=== PATIENT | female | born 1945 | race Caucasian/White ===

== ENCOUNTER 2016-11-13 13:54 | Observation (INO) | payer OTHER ==
[~2016-11-13] VITALS: Ht 149.9 cm; Wt 66.4 kg
[~2016-11-13 13:54] MED LIST: ADVIN25/60 INH; ALBU1AER9 INH; CLB200 PO; DICL1GEL28 TOP; KETO0.024 OPB; RANI150C4 PO; SIMV-151 PO; XNX25 PO
--- NOTE | 2016-11-13 15:32 | EMERGENCY ROOM VISIT NOTE ---
History Report prepared by Yony: Nissa Jones Under the Supervision of: Dr. Jamar Barrow D.O. First contact with patient: 14:55 Chief Complaint: CARDIAC ASSESSMENT Stated Complaint: HIGH BP, SOB, LIGHTHEADED, NOT WALKING FAST Nursing Triage Summary: Triage note: pt reports since Thursday she has had high bp and shortness of breath. pt denies any pain at this time. "last night in bed i had some chest pressure and pain in my right shoulder." History of Present Illness The patient is a 71 year old female who presents to the Emergency Room with complaints of persistent shortness of breath and hypertension for the past 5 days. She is accompanied by her . The highest BP she has recorded at home was 170/80. She admits to a history of asthma and hypertension and takes daily Lisinopril. She underwent a cardiac ablation in 2013 for a history of SVT and states she did not have a cardiac catheterization before the ablation. The patient follows with Dr. Mukherjee of [facility] and is not on daily blood thinners. She denies any recent headaches or changes in vision. She does admit to resolved chest pain that occurred last night. She describes the pain as feeling like "pressure" and reports it was accompanied by right sided shoulder pain that radiated into her neck. She states she was sitting in bed when the pain occurred, but notes she is pain free here in the ED. She saw her doctor earlier this afternoon who told her she may have experienced a heart attack, and should come to the ED for further evaluation. The patient notes she has lost 10 pounds in the past several months through diet and exercise and admits she has been walking around her neighborhood recently. She has continued to walk over the past few days, despite the cold and windy weather. She admits to some recent diarrhea for the past 1 week, but states she has experienced chronic problems with diarrhea before. Source of History: patient Onset: last night Position: chest, other (global) Timing: other (persistent) Associated Symptoms: + chest pain, + diarrhea, No headache Review of Systems See HPI for pertinent positives & negatives. A total of 10 systems reviewed and were otherwise negative. Past Medical & Surgical Medical Problems: (1) Asthma (2) Bronchitis (3) Hypertension Social History Smoking Status: Never Smoker Smokeless Tobacco Use: No Alcohol Use: occasionally Drug Use: none Marital Status: Housing Status: lives with family Occupation Status: retired Current/Historical Medications Scheduled Celecoxib (Celebrex), 200 MG PO DAILY Cholecalciferol (Vitamin D3), 1 TAB PO DAILY Fluticasone Prop/Salmeterol (Advair Diskus 250/50 60 Dose), 1 PUFF INH BID Lisinopril (Lisinopril), 5 MG PO DAILY Loratadine (Claritin), 10 MG PO DAILY Simvastatin (Simvastatin), 10 MG PO HS [Lemon-Lavendar], 1 TAB PO DAILY Scheduled PRN Alprazolam (Alprazolam), 0.125 MG PO HS PRN for Anxiety/Insomnia Carboxymethylcellulose Sodium (Refresh Tears), 2-3 DROPS OPB DAILY PRN for PRN Allergies Coded Allergies: Moxifloxacin (Verified Allergy, Intermediate, ITCH,RED RASH, 11/13/16) Physical Exam Vital Signs Date Time Temp Pulse Resp B/P Pulse Ox O2 Delivery O2 Flow Rate FiO2 11/13/16 16:36 73 18 175/85 96 Room Air 11/13/16 15:50 69 16 96 Room Air 11/13/16 15:41 68 11/13/16 15:36 96 Room Air 11/13/16 15:36 99 Room Air 11/13/16 13:58 36.7 81 18 180/90 98 Room Air Physical Exam GENERAL: Patient is awake, alert, in no acute distress, patient is resting comfortably and showing no signs of anxiety EYES: The conjunctivae are clear. The pupils are round and reactive. EARS, NOSE, MOUTH AND THROAT: The nose is without any evidence of any deformity. Mucous membranes are moist tongue is midline NECK: The neck is nontender and supple. RESPIRATORY: Normal respiratory effort is noted there is no evidence of wheezing rhonchi or rales CARDIOVASCULAR: Regular rate and rhythm noted there no murmurs rubs or gallops normal S1 normal S2 GASTROINTESTINAL: The abdomen is soft. Bowel sounds are present in all quadrants. Abdomen is nontender MUSCULOSKELETAL/EXTREMITIES: There is no evidence of gross deformity full range of motion is noted in the hips and shoulders SKIN: There is no obvious evidence of any rash. There are no petechiae, pallor or cyanosis noted. NEUROLOGIC: Patient is awake alert and oriented x3 Medical Decision & Procedures ER Provider Diagnostic Interpretation: This X-Ray was reviewed and interpreted by myself and the radiologist. SINGLE VIEW CHEST IMPRESSION: No active disease in the chest. Electronically signed by: Alex Aragon M.D. 11/13/2016 3:45 PM Laboratory Results 11/13/16 15:35 Red Blood Count 4.53, Mean Corpuscular Volume 91.8, Mean Corpuscular Hemoglobin 31.1, Mean Corpuscular Hemoglobin Concent 33.9, Mean Platelet Volume 10.5, Neutrophils (%) (Auto) 57.5, Lymphocytes (%) (Auto) 30.5, Monocytes (%) (Auto) 8.6, Eosinophils (%) (Auto) 2.5, Basophils (%) (Auto) 0.9, Neutrophils # (Auto) 3.26, Lymphocytes # (Auto) 1.73, Monocytes # (Auto) 0.49, Eosinophils # (Auto) 0.14, Basophils # (Auto) 0.05 11/13/16 15:35 Test 11/13/16 15:15 11/13/16 15:35 Urine Color YELLOW Urine Appearance CLEAR (CLEAR) Urine pH 6.0 (4.5-7.5) Urine Specific [place] 1.005 (1.000-1.030) Urine Protein NEG (NEG) Urine Glucose (UA) NEG (NEG) Urine Ketones NEG (NEG) Urine Occult Blood NEG (NEG) Urine Nitrite NEG (NEG) Urine Bilirubin NEG (NEG) Urine Urobilinogen NEG (NEG) Urine Leukocyte Esterase TRACE (NEG) Urine WBC (Auto) 1-5 /hpf (0-5) Urine RBC (Auto) 0-4 /hpf (0-4) Urine Hyaline Casts (Auto) 0 /lpf (0-5) Urine Epithelial Cells (Auto) 0-5 /lpf (0-5) Urine Bacteria (Auto) NEG (NEG) White Blood Count 5.67 K/uL (4.8-10.8) Red Blood Count 4.53 M/uL (4.2-5.4) Hemoglobin 14.1 g/dL (12.0-16.0) Hematocrit 41.6 % (37-47) Mean Corpuscular Volume 91.8 fL (80-100) Mean Corpuscular Hemoglobin 31.1 pg (25-34) Mean Corpuscular Hemoglobin Concent 33.9 g/dl (32-36) Platelet Count 217 K/uL (130-400) Mean Platelet Volume 10.5 fL (7.4-10.4) Neutrophils (%) (Auto) 57.5 % Lymphocytes (%) (Auto) 30.5 % Monocytes (%) (Auto) 8.6 % Eosinophils (%) (Auto) 2.5 % Basophils (%) (Auto) 0.9 % Neutrophils # (Auto) 3.26 K/uL (1.4-6.5) Lymphocytes # (Auto) 1.73 K/uL (1.2-3.4) Monocytes # (Auto) 0.49 K/uL (0.11-0.59) Eosinophils # (Auto) 0.14 K/uL (0-0.5) Basophils # (Auto) 0.05 K/uL (0-0.2) RDW Standard Deviation 47.7 fL (36.4-46.3) RDW Coefficient of Variation 14.0 % (11.5-14.5) Immature Granulocyte % (Auto) 0.0 % Immature Granulocyte # (Auto) 0.00 K/uL (0.00-0.02) Prothrombin Time 10.6 SECONDS (9.0-12.0) Prothromb Time International Ratio 1.0 (0.9-1.1) Activated Partial Thromboplast Time 26.3 SECONDS (21.0-31.0) Partial Thromboplastin Ratio 1.0 Anion Gap 5.0 mmol/L (3-11) Est Creatinine Clear Calc Drug Dose 43.6 ml/min Estimated GFR () 68.0 Estimated GFR (Non- 58.7 BUN/Creatinine Ratio 18.7 (10-20) Calcium Level 8.7 mg/dl (8.5-10.1) Magnesium Level 2.4 mg/dl (1.8-2.4) Total Bilirubin 0.3 mg/dl (0.2-1) Aspartate Amino Transf (AST/SGOT) 19 U/L (15-37) Alanine Aminotransferase (ALT/SGPT) 30 U/L (12-78) Alkaline Phosphatase 76 U/L (45-117) Total Creatine Kinase 155 U/L (26-192) Creatine Kinase MB 1.8 ng/ml (0.5-3.6) Creatine Kinase MB Ratio 1.2 (0-3.0) Pro-B-Type Natriuretic Peptide 163 pg/ml (0-900) Total Protein 7.4 gm/dl (6.4-8.2) Albumin 3.8 gm/dl (3.4-5.0) Globulin 3.6 gm/dl (2.5-4.0) Albumin/Globulin Ratio 1.1 (0.9-2) Thyroid Stimulating Hormone (TSH) 1.120 uIu/ml (0.300-4.500) Free Thyroxine 1.03 ng/dl (0.80-1.60) Laboratory results per my review. Medications Administered Medications (Trade) Dose Ordered Sig/Jennifer Route Start Time Stop Time Status Last Admin Dose Admin Sodium Chloride (Nss 1000ml) 1,000 ml @ 100 mls/hr Q10H IV 11/13/16 18:17 12/13/16 18:16 11/13/16 21:11 100 MLS/HR ECG Indication: SOB/dyspnea Rate (beats per minute): 74 Rhythm: normal sinus (normal sinus rhythm) Findings: Q waves (Anterior), other (no acute ST segments) Change: no significant change (No change when compared to EKG from 12/07/2014) ED Course 1519: The patient was evaluated in room A9B. A complete history and physical examination were performed. 1715: I reevaluated the patient. I discussed my recommendation that she remain in the hospital for further evaluation and management and she agrees. I will page the hospital medicine team. 1736: I discussed the patients case with Dr. Singh, [facility] Hospitalist. The patient will be further evaluated. Medical Decision Prior records/ancillary studies reviewed. Triage Nursing notes reviewed. Additional history obtained from the family. The patient's history was concerning for respiratory difficulties. Differential diagnosis: Etiologies such as infections, reactive airway disease, pneumonia, pneumothorax , COPD, CHF, cardiac ischemia, pulmonary embolism, musculoskeletal, gastrointestinal, as well as others were entertained. The patient is a 71-year-old female who presented to the emergency apartment for an evaluation of chest discomfort and dyspnea on exertion. The patient was not tachycardic. She did not have any acute EKG changes compared to previous. I discussed the patient's laboratory and radiographic studies with her. I also discussed the limitations of the emergency department workup for chest pain with her. Given the patient's history and the fact that she was sent her by her primary care physician for cardiac workup I discussed her case with the on-call [facility] hospitalist group to further evaluate the patient for inpatient management and testing. Consults Time Called: 172 Consulting Physician: Dr. Singh [facility] Hospitalist Returned Call: [phone] I discussed the patients case with Dr. Singh [facility] Hospitalist. The patient will be further evaluated. Impression Primary Impression: Right-sided chest pain Additional Impressions: Dyspnea on exertion Palpitations Scribe Attestation The scribe's documentation has been prepared under my direction and personally reviewed by me in its entirety. I confirm that the note above accurately reflects all work, treatment, procedures, and medical decision making performed by me. Departure Information Dispostion Being Evaluated By Hospitalist Referrals RV. Srinivasan MD (PCP) Patient Instructions My [facility] Health Problem Qualifiers
--- NOTE | 2016-11-13 15:46 | DIAGNOSTIC IMAGING REPORT ---
SINGLE VIEW CHEST CLINICAL HISTORY: Dyspnea. FINDINGS: An AP, portable, upright chest radiograph is compared to study dated 09/11/2014 and correlated with chest CT dated 11/01/2012. The examination is degraded by portable technique and patient rotation. The cardiomediastinal silhouette is unremarkable. Chronic interstitial thickening is unchanged. The lungs and pleural spaces are clear. No pneumothorax is seen. The skeletal structures are osteopenic. The bony thorax is grossly intact. IMPRESSION: No active disease in the chest. Electronically signed by: Alex Aragon M.D. 11/13/2016 3:45 PM Dictated Date/Time: 11/13/2016 3:44 PM
[2016-11-13 15:48] LABS: URINE APPEARANCE CLEAR (CLEAR); URINE BILIRUBIN NEG (NEG); URINE COLOR YELLOW; URINE EPITHELIAL CELL AUTO 0-5 /lpf (0-5); URINE NITRITE NEG (NEG); URINE SPECIFIC GRAVITY 1.005 (1.000-1.030); UROBILINOGEN NEG (NEG)
[2016-11-13 15:49] LABS: BASO % 0.9 %; BASO ABS # 0.05 K/uL (0-0.2); COMPLETE YES; EOS % 2.5 %; HEMATOCRIT 41.6 % (37-47); LYMPH % 30.5 %; LYMPH ABS # 1.73 K/uL (1.2-3.4); MEAN CELL VOLUME 91.8 fL (80-100); MEAN CORPUSCULAR HEMOGLOBIN 31.1 pg (25-34); MEAN CORPUSCULAR HGB CONC 33.9 g/dl (32-36); MEAN PLATELET VOLUME 10.5 fL (7.4-10.4); MONO % 8.6 %; NEUT % 57.5 %; PLATELET COUNT 217 K/uL (130-400); RED BLOOD COUNT 4.53 M/uL (4.2-5.4); WHITE BLOOD COUNT 5.67 K/uL (4.8-10.8)
[2016-11-13 15:52] LABS: MANUAL MICROSCOPIC REQUIRED? NO; REVIEW REQ? NO
[2016-11-13 15:57] LABS: PROTHROMBIN TIME (PATIENT) 10.6 SECONDS (9.0-12.0)
[2016-11-13 16:09] LABS: ALT/SGPT 30 U/L (12-78); AST/SGOT 19 U/L (15-37); BLOOD UREA NITROGEN 18 mg/dl (7-18); BUN/CREATININE RATIO 18.7 (10-20); CALCIUM 8.7 mg/dl (8.5-10.1); CARBON DIOXIDE 29 mmol/L (21-32); CHLORIDE 108 mmol/L (98-107); CREATININE 0.96 mg/dl (0.60-1.20); GLUCOSE 82 mg/dl (70-99); MAGNESIUM 2.4 mg/dl (1.8-2.4); POTASSIUM 4.2 mmol/L (3.5-5.1); SODIUM 142 mmol/L (136-145)
[2016-11-13 16:18] LABS: ALB/GLOB RATIO 1.1 (0.9-2); ALKALINE PHOSPHATASE 76 U/L (45-117); CKMB/CK RATIO 1.2 (0-3.0)
[2016-11-13] MEDS ORDERED: LSN25 PO (17:12)
[2016-11-13] MEDS ORDERED: CHOL1000 PO (17:12)
[2016-11-13] MEDS ORDERED: CLR10 PO (17:12)
[2016-11-13] MEDS ORDERED: CARB0.5D28 OPB (17:14)
[2016-11-13] MEDS ORDERED: [UNRECOGNIZED DRUG - OTHER] PO (17:15)
--- NOTE | 2016-11-13 17:37 | History and Physical ---
History & Physical Date & Time of Service: Nov 13, 2016 at 17:35 Chief Complaint: High Bp, Sob, Lightheaded, Not Walking Fast Primary Care Physician: RV. Srinivasan MD History of Present Illness This is a 71 yo F with PMHx of SVT s/p ablation therapy, HTN, bronchitis, asthma , who presents from her PCP's office at a routine appointment with complaints of shortness of breath and EKG with possible inferior infarct which was concerning for [place]. The patient is accompanied by her . The patient admit to worsening shortness of breath which started approximately 2-3 days ago. She notes that it has become increasingly difficult to go up the stairs, and that she becomes more fatigued more quickly than normal. She reports taking lisinopril 2.5 mg. The patient forgot to take this medication for a ay stretch, and noted to have heart racing on Thursday night; she took her blood pressure and at that time was higher than 170/80, she took lisinopril 2.5 mg at that time, and then restarted taking her normal daily dose on Thursday morning. She has been consistent with taking medication since then. Her blood pressure on Thursday was in the 130s. She admits to feeling a right sided shoulder pain today, worse at rest and with lying flat, and has had this before. The patient has also experienced left shoulder pain which started her in August, which comes and goes, worse at rest and with lying flat. She denies any cardiac symptoms that coincide with that shoulder pain. The patient denies other symptoms such as chest pain, palpitation, flutter, headache, changes in vision, or peripheral swelling. The patient also notes having diarrhea 1 week. She has approximately 4 loose bowel movements per day. Her fluid intake has not changed; normally drinks a glass of water with meals and a few sips with medications. Past Medical/Surgical History Medical Problems: (1) Asthma Status: Chronic (2) Bronchitis Status: Chronic Social History Smoking Status: Never Smoker Smokeless Tobacco Use: No Alcohol Use: occasionally Drug Use: none Marital Status: Housing status: lives with significant other Occupational Status: retired Immunizations History of Influenza Vaccine: Yes History of Tetanus Vaccine?: No History of Pneumococcal: No History of Hepatitis B Vaccine: No Multi-Drug Resistant Organisms History of MDRO: No Allergies Coded Allergies: Moxifloxacin (Verified Allergy, Intermediate, ITCH,RED RASH, 11/13/16) Home Medications Scheduled Celecoxib (Celebrex), 200 MG PO DAILY Cholecalciferol (Vitamin D3), 1 TAB PO DAILY Fluticasone Prop/Salmeterol (Advair Diskus 250/50 60 Dose), 1 PUFF INH BID Lisinopril (Lisinopril), 5 MG PO DAILY Loratadine (Claritin), 10 MG PO DAILY Metoprolol Succinate (Metoprolol Succinate ER), 50 MG PO DAILY Simvastatin (Simvastatin), 10 MG PO HS [Lemon-Lavendar], 1 TAB PO DAILY Scheduled PRN Alprazolam (Alprazolam), 0.125 MG PO HS PRN for Anxiety/Insomnia Carboxymethylcellulose Sodium (Refresh Tears), 2-3 DROPS OPB DAILY PRN for PRN Review of Systems Constitutional: + fatigue, No chills, No fever, No sweats, No weakness Eyes: No diplopia, No worsening of vision ENT: No sore throat, No tinnitus Respiratory: + dyspnea on exertion, + shortness of breath, No cough, No dyspnea at rest Cardiovascular: No chest pain, No orthopnea Abdomen: + diarrhea, No GI bleeding, No constipation, No nausea, No pain, No vomiting Musculoskeletal: No calf pain, No joint pain, No swelling Genitourinary - Female: No dysuria, No urinary frequency Neurologic: No balance problems, No numbness/tingling Psychiatric: + anxiety Endocrine: + fatigue Integumentary: No itch, No rash Physical Exam Vital Signs Date Time Temp Pulse Resp B/P Pulse Ox O2 Delivery O2 Flow Rate FiO2 11/13/16 16:36 73 18 175/85 96 Room Air 11/13/16 15:50 69 16 96 Room Air 11/13/16 15:41 68 11/13/16 15:36 96 Room Air 11/13/16 15:36 99 Room Air 11/13/16 13:58 36.7 81 18 180/90 98 Room Air General Appearance: WD/WN, no apparent distress Head: normocephalic, atraumatic Eyes: PERRL, EOMI ENT: hearing grossly normal, pharynx normal Neck: supple, no JVD Respiratory/Chest: lungs clear, normal breath sounds, no respiratory distress, no accessory muscle use Cardiovascular: regular rate, rhythm, no murmur, normal peripheral pulses Abdomen/GI: normal bowel sounds, non tender, soft, no organomegaly Back: normal inspection Extremities/Musculoskelatal: no calf tenderness, no pedal edema Neurologic/Psych: alert, normal mood/affect, oriented x 3 Skin: normal color, warm/dry Diagnostics Laboratory Results Results Past 24 Hours Test 11/13/16 15:15 11/13/16 15:35 Range/Units Urine Color YELLOW Urine Appearance CLEAR CLEAR Urine pH 6.0 4.5-7.5 Urine Specific [place] 1.005 1.000-1.030 Urine Protein NEG NEG Urine Glucose (UA) NEG NEG Urine Ketones NEG NEG Urine Occult Blood NEG NEG Urine Nitrite NEG NEG Urine Bilirubin NEG NEG Urine Urobilinogen NEG NEG Urine Leukocyte Esterase TRACE NEG Urine WBC (Auto) 1-5 0-5 /hpf Urine RBC (Auto) 0-4 0-4 /hpf Urine Hyaline Casts (Auto) 0 0-5 /lpf Urine Epithelial Cells (Auto) 0-5 0-5 /lpf Urine Bacteria (Auto) NEG NEG White Blood Count 5.67 4.8-10.8 K/uL Red Blood Count 4.53 4.2-5.4 M/uL Hemoglobin 14.1 12.0-16.0 g/dL Hematocrit 41.6 37-47 % Mean Corpuscular Volume 91.8 80-100 fL Mean Corpuscular Hemoglobin 31.1 25-34 pg Mean Corpuscular Hemoglobin Concent 33.9 32-36 g/dl Platelet Count 217 130-400 K/uL Mean Platelet Volume 10.5 7.4-10.4 fL Neutrophils (%) (Auto) 57.5 % Lymphocytes (%) (Auto) 30.5 % Monocytes (%) (Auto) 8.6 % Eosinophils (%) (Auto) 2.5 % Basophils (%) (Auto) 0.9 % Neutrophils # (Auto) 3.26 1.4-6.5 K/uL Lymphocytes # (Auto) 1.73 1.2-3.4 K/uL Monocytes # (Auto) 0.49 0.11-0.59 K/uL Eosinophils # (Auto) 0.14 0-0.5 K/uL Basophils # (Auto) 0.05 0-0.2 K/uL RDW Standard Deviation 47.7 36.4-46.3 fL RDW Coefficient of Variation 14.0 11.5-14.5 % Immature Granulocyte % (Auto) 0.0 % Immature Granulocyte # (Auto) 0.00 0.00-0.02 K/uL Prothrombin Time 10.6 9.0-12.0 SECONDS Prothromb Time International Ratio 1.0 0.9-1.1 Activated Partial Thromboplast Time 26.3 21.0-31.0 SECONDS Partial Thromboplastin Ratio 1.0 Sodium Level 142 136-145 mmol/L Potassium Level 4.2 3.5-5.1 mmol/L Chloride Level 108 98-107 mmol/L Carbon Dioxide Level 29 21-32 mmol/L Anion Gap 5.0 3-11 mmol/L Blood Urea Nitrogen 18 7-18 mg/dl Creatinine 0.96 0.60-1.20 mg/dl Est Creatinine Clear Calc Drug Dose 43.6 ml/min Estimated GFR () 68.0 Estimated GFR (Non- 58.7 BUN/Creatinine Ratio 18.7 10-20 Random Glucose 82 70-99 mg/dl Calcium Level 8.7 8.5-10.1 mg/dl Magnesium Level 2.4 1.8-2.4 mg/dl Total Bilirubin 0.3 0.2-1 mg/dl Aspartate Amino Transf (AST/SGOT) 19 15-37 U/L Alanine Aminotransferase (ALT/SGPT) 30 12-78 U/L Alkaline Phosphatase 76 45-117 U/L Total Creatine Kinase 155 26-192 U/L Creatine Kinase MB 1.8 0.5-3.6 ng/ml Creatine Kinase MB Ratio 1.2 0-3.0 Troponin I < 0.015 0-0.045 ng/ml Pro-B-Type Natriuretic Peptide 163 0-900 pg/ml Total Protein 7.4 6.4-8.2 gm/dl Albumin 3.8 3.4-5.0 gm/dl Globulin 3.6 2.5-4.0 gm/dl Albumin/Globulin Ratio 1.1 0.9-2 Thyroid Stimulating Hormone (TSH) 1.120 0.300-4.500 uIu/ml Free Thyroxine 1.03 0.80-1.60 ng/dl Diagnostic Radiology SINGLE VIEW CHEST CLINICAL HISTORY: Dyspnea. FINDINGS: An AP, portable, upright chest radiograph is compared to study dated 09/11/2014 and correlated with chest CT dated 11/01/2012. The examination is degraded by portable technique and patient rotation. The cardiomediastinal silhouette is unremarkable. Chronic interstitial thickening is unchanged. The lungs and pleural spaces are clear. No pneumothorax is seen. The skeletal structures are osteopenic. The bony thorax is grossly intact. IMPRESSION: No active disease in the chest. Electronically signed by: Alex Aragon M.D. 11/13/2016 3:45 PM Dictated Date/Time: 11/13/2016 3:44 PM The status of this report is Signed. Draft = Not yet reviewed or approved by Radiologist. Signed = Reviewed and approved by Radiologist. EKG Vent. rate 74 BPM ID interval 142 ms QRS duration 70 ms QT/QTc 394/437 ms P-R-T axes 57 -7 22 NSR with inferior infarct, age undeterminable Impression Assessment and Plan This is a 71 yo F with PMHx of SVT s/p ablation therapy, HTN, bronchitis, asthma , who presents from her PCP's office at a routine appointment with complaints of shortness of breath and EKG with possible inferior infarct which was concerning for [place]. Shortness of breath, fatigue - Admit to telemetry for observation - Patient had not taken lisinopril 2.5 mg x 4 days, restarted taking on Thursday night - hypertension possibly due to medication noncompliance vs hypertension secondary to dehydration with diarrhea, anxiety may also be playing a role. - Cardiology consulted, patient follows with Dr. Watkins as an outpatient - Initial troponin is negative, will trend 2 more sets - EKG was reviewed, shows possible inferior infarct however is not changed since October 2014, - the patient's CBC and BMP are essentially unremarkable - 2-D echo ordered - Chest x-ray without active disease in the chest - IV Lopressor prn for SBP > 160 or DBP > 110, with holding parameters of HR<60 Hypertension - Continue on lisinopril 2.5 mg daily - Possible that this is due to dehydration with associated diarrhea 1 week, if does not resolve with appropriate fluid resuscitation the patient may need secondary antihypertensive Diarrhea - We'll check stool studies, fecal leukocytes, C. difficile - it's unlikely that the patient will have a positive C. difficile as she has not been on a recent course of antibiotics nor did she take Protonix. - IVF at 100mL/hr - Imodium after negative stool cultures - Will replete electrolytes as needed- BMP is unremarkable Asthma Bronchitis - Continue home inhalers - Chest x-ray was reviewed, no acute findings Depression/anxiety - Continue Xanax 0.125 mg QHS prn DVT prophylaxis: Teds, SCDs, out of bed as tolerated CODE STATUS: Full code Disposition: Patient from home, discharged when medically stable, likely tomorrow Level of Care Telemetry Resuscitation Status FULL RESUSCITATION VTE Prophylaxis VTE Risk Assessment Done? Y/N: Yes Risk Level: Very Low Given or contraindicated: T.E.D. Stockings, SCD's Assessment and Plan Attending Addendum: I have physically seen and examined this patient, have directed their medical care, have supervised the PA's activity, and agree with the H&P as noted above, with the following changes: The patient is awake, well-developed and adequately nourished, alert and oriented 3, normocephalic and atraumatic, lying in bed and in no acute distress. HEENT--PERRL, EOMI, mucous membranes and oropharynx dry. Neck--supple, no JVD or bruits, thyroid normal, trachea midline, no adenopathy. Heart--normal S1 and S2, no extra beats, no murmurs, rubs or gallops. Lungs--clear bilaterally with good air movement, no respiratory distress, no accessory muscle use. Abdomen--normal bowel sounds and soft, nontender and nondistended, no hernias or masses, no organomegaly. Extremities--no cyanosis, clubbing or edema. There are good distal pulses b/l. Dermatologic--normal skin turgor, normal color, warm and dry, no abnormal lymph nodes, no rash. Neurologic--cranial nerves II through XII grossly intact, motor and sensory examination normal. Rheumatologic--normal range of motion, nontender, muscles and joints. Psychiatric--normal affect. Assessment and Plan: SVT status post ablation therapy/hypertension/symptoms of fatigue and shortness of breath--the patient will be admitted to the telemetry unit, for serial cardiac enzymes, cardiac rhythm monitoring. A 2-D echocardiogram with Dopplers. Blood pressure is elevated in the emergency department in part due to anxiety in part due to recent restarting of her lisinopril. We'll consult her clay hoister Dr. Watkins. EKG does not show any new findings. Lopressor 5 mg IV every 4 hours when necessary systolic blood pressure greater than 160. Diarrhea stool studies to be ordered. Place on IV fluids. May use cholestyramine before cultures results of severe, may use Imodium if she prefers after words if studies are negative. Asthma--continue her usual inhalers.
[2016-11-13] MEDS ORDERED: ALPRAZOLAM 0.25 MG TAB PO PRN (18:30)
[2016-11-13] MEDS ORDERED: ONDANSETRON INJ 2 MG/ML 2 ML VIAL IV PRN (18:30)
[2016-11-13] MEDS ORDERED: ACETAMINOPHEN 325 MG TAB PO PRN (18:30)
[2016-11-13] MEDS ORDERED: POLYETHYLENE (MIRALAX) 17 GM PACK PO PRN (18:30)
[2016-11-13] MEDS ORDERED: METOPROLOL TARTRATE 1 MG/ML VIAL IV PRN (18:45)
[2016-11-13] MEDS ORDERED: IV FLUIDS COMPLETED PRN (19:00)
[2016-11-13 19:46] VITALS: O2SAT 98
[2016-11-13 20:00] VITALS: BP 132/78; PULSE 73; TEMP 37.1; O2SAT 98
[2016-11-13 20:20] VITALS: Ht 149.9 cm; Wt 66.4 kg
[2016-11-13] MEDS ORDERED: SIMVASTATIN 10 MG TAB PO SCH (21:00)
[2016-11-13] MEDS: FLUTICASONE/SALMETEROL 250/50 (ADVAIR) 14 PUFF/1 INHALER INH SCH (21:11)
[2016-11-13] MEDS: SODIUM CHLORIDE 0.9% 1000ML 1,000 ML IV SCH (21:11)
[2016-11-13 23:09] VITALS: BP 163/83; PULSE 72; TEMP 36.5; O2SAT 95
[2016-11-14 03:31] VITALS: BP 145/79; PULSE 63; TEMP 36.4; O2SAT 97
[2016-11-14] MEDS: SODIUM CHLORIDE 0.9% 1000ML 1,000 ML IV SCH ×2 (04:17→14:17)
[2016-11-14 06:36] LABS: BASO % 0.9 %; BASO ABS # 0.05 K/uL (0-0.2); COMPLETE YES; EOS % 2.3 %; HEMATOCRIT 41.3 % (37-47); IG% 0.2 %; LYMPH % 38.5 %; LYMPH ABS # 2.04 K/uL (1.2-3.4); MEAN CELL VOLUME 92.6 fL (80-100); MEAN CORPUSCULAR HEMOGLOBIN 31.2 pg (25-34); MEAN CORPUSCULAR HGB CONC 33.7 g/dl (32-36); MEAN PLATELET VOLUME 10.6 fL (7.4-10.4); MONO % 9.8 %; NEUT % 48.3 %; PLATELET COUNT 184 K/uL (130-400); RED BLOOD COUNT 4.46 M/uL (4.2-5.4)
[2016-11-14 07:02] LABS: BLOOD UREA NITROGEN 14 mg/dl (7-18); BUN/CREATININE RATIO 19.7 (10-20); CALCIUM 8.7 mg/dl (8.5-10.1); CARBON DIOXIDE 27 mmol/L (21-32); CHLORIDE 111 mmol/L (98-107); CREATININE 0.72 mg/dl (0.60-1.20); GLUCOSE 80 mg/dl (70-99); POTASSIUM 3.9 mmol/L (3.5-5.1); SODIUM 145 mmol/L (136-145)
[2016-11-14 07:33] VITALS: BP 174/84; PULSE 70; TEMP 36.5; O2SAT 98
[2016-11-14] MEDS: FLUTICASONE/SALMETEROL 250/50 (ADVAIR) 14 PUFF/1 INHALER INH SCH (08:19)
[2016-11-14] MEDS ORDERED: LISINOPRIL 5 MG TAB PO SCH (09:00)
[2016-11-14] MEDS ORDERED: CeleBREX 200 MG CAP PO SCH (09:00)
[2016-11-14] MEDS ORDERED: LORATADINE 10 MG TAB PO SCH (09:00)
[2016-11-14] MEDS ORDERED: CHOLECALCIFEROL 1000 INTER.UNIT TAB PO SCH (09:00)
--- NOTE | 2016-11-14 09:50 | ECHOCARDIOGRAM REPORT ---
*NOTICE TO RECEIVING DEMOCRAT AGENCY This information is strictly Confidential and protected under [place] law. [place] law prohibits you from making any further disclosure of this information unless further disclosure is expressly permitted by the written consent of the person to whom it pertains or is authorized by law. A general authorization for the release of medical or other information is not sufficient for this purpose. Hospital accepts no responsibility if the information is made available to any other person, INCLUDING THE PATIENT. Interpretation Summary * Name: CARLOS PAEZ Study Date: 11/14/2016 06:37 AM BP: 174/84 mmHg * Patient Location: [facility]\S\N289\S\2 HR: 70 * : 1945 (M/d/yyyy) Gender: Female Height: 59 in * Age: 71 yrs Ethnicity: CA Weight: 148 lb * Ordering Physician: Joan Nettles * Referring Physician: PAT * Performed By: Gertrude Wiggins RDCS * * Reason For Study: CHEST PAIN * BSA: 1.6 m2 * History: CHEST PAIN * Normal biventricular systolic function. * Normal chamber dimensions. * Borderline concentric left ventricular hypertrophy. * Left ventricular diastolic dysfunction. * No significant valvular abnormalities. * -- Conclusions -- * Aortic valve sclerosis mild, without significant aortic valvular stenosis. Procedure Details * A complete two-dimensional transthoracic echocardiogram was performed (2D, M-mode, Doppler and color flow Doppler). Left Ventricle * The left ventricle is normal in size. * There is borderline concentric left ventricular hypertrophy. * Ejection Fraction = 60-65%. * Left ventricular systolic function is normal. * A full diastolic examination was done with clinical findings of Class I diastolic dysfunction. * The left ventricular wall motion is normal. Right Ventricle * The right ventricle is normal in size and function. Atria * The left atrial size is normal. * Right atrial size is normal. Mitral Valve * The mitral valve is normal. * There is no mitral valve stenosis. * There is no mitral regurgitation noted. Tricuspid Valve * The tricuspid valve is not well visualized, but is grossly normal. * There is no tricuspid stenosis. * There is trace tricuspid regurgitation. * Right ventricular systolic pressure is normal. Aortic Valve * The aortic valve is trileaflet. * The aortic valve opens well. * Aortic valve sclerosis mild, without significant aortic valvular stenosis. * Aortic stenosis is absent. * Trace aortic regurgitation. Pulmonic Valve * The pulmonic valve is not well seen, but is grossly normal. * There is no pulmonic valvular stenosis. * Trace pulmonic valvular regurgitation. Great Vessels * The aortic root is normal size. MMode 2D Measurements and Calculations IVSd 1.1 cm IVSs 1.6 cm LVIDd 3.8 cm LVIDs 2.4 cm LVPWd 1.2 cm LVPWs 1.5 cm IVS/LVPW 0.89 FS 36.3 % EDV(Teich) 60.4 ml ESV(Teich) 20.1 ml EF(Teich) 66.8 % EDV(cubed) 53.2 ml ESV(cubed) 13.7 ml EF(cubed) 74.1 % % IVS thick 41.1 % % LVPW thick 24.1 % LV mass(C)d 145.4 grams LV mass(C)dI 89.6 grams/m\S\2 LV mass(C)s 126.8 grams LV mass(C)sI 78.1 grams/m\S\2 SV(Teich) 40.3 ml SI(Teich) 24.9 ml/m\S\2 SV(cubed) 39.4 ml SI(cubed) 24.3 ml/m\S\2 Ao root diam 3.0 cm Ao root area 7.1 cm\S\2 LA dimension 3.4 cm LA/Ao 1.1 LVAd ap4 25.6 cm\S\2 LVLd ap4 7.8 cm EDV(MOD-sp4) 69.5 ml LVAs ap4 14.4 cm\S\2 LVLs ap4 6.2 cm ESV(MOD-sp4) 28.8 ml EF(MOD-sp4) 58.6 % LVAd ap2 21.8 cm\S\2 LVLd ap2 7.4 cm EDV(MOD-sp2) 55.2 ml LVAs ap2 13.4 cm\S\2 LVLs ap2 6.3 cm ESV(MOD-sp2) 26.8 ml EF(MOD-sp2) 51.4 % SV(MOD-sp4) 40.7 ml SI(MOD-sp4) 25.1 ml/m\S\2 SV(MOD-sp2) 28.4 ml SI(MOD-sp2) 17.5 ml/m\S\2 Doppler Measurements and Calculations MV E max khanh 94.6 cm/sec MV A max khanh 102.8 cm/sec MV E/A 0.92 MV dec time 0.21 sec Ao V2 max 126.0 cm/sec Ao max PG 6.4 mmHg Ao max PG (full) 2.6 mmHg AI max khanh 419.3 cm/sec AI max PG 70.3 mmHg AI dec slope 142.0 cm/sec\S\2 AI P1/2t 864.8 msec LV V1 max PG 3.8 mmHg LV V1 max 97.4 cm/sec TR max khanh 190.0 cm/sec
--- NOTE | 2016-11-14 09:51 | Cardiology Consultation ---
Cardiology Consultation Date of Consultation: Nov 14, 2016. Requesting Physician: Dr Nettles Reason for Consultation: AMBROSE Pt evaluation today including: conversation w/ patient, physical exam, lab review, review of studies, review of inpatient medication list History of Present Illness This is a 71-year-old woman with a long history of palpitations consistent with SVT, her episodes were not documented in until 09/11/2014 where she had a supraventricular tachycardia rate of 171 bpm terminated by adenosine. This appeared to be typical AV elias reentry and ultimately we performed electrophysiologic study and ablation of the slow path on 12/07/2014. The procedure appeared to be successful however she had help at dictation subsequently but no recurrent tachycardia. Her palpitations appear to be premature beats (which in the past probably triggered her arrhythmia). We were therefore not treating her palpitations. She now presents with progressive shortness of breath over several days as well as intermittent palpitations. She has fatigue and dyspnea on exertion. She reports that she got short of breath walking up one flight of stairs in our office several days ago. She also describes intermittent left shoulder discomfort but this is not strictly exertional. Initial evaluation here showed hypertension which is being treated, negative troponins and electrocardiogram showing a possible old inferior infarct but unchanged from October 2014. A stress echo in 2014 was unremarkable. At the time of my evaluation she was not having palpitations, she has not had shortness of breath but has not been active. Past Medical/Surgical History (1) Palpitations (2) Dyspnea on exertion (3) SVT (supraventricular tachycardia) (4) Hypertension Social History Smoking Status: Former Smoker History of Alcohol Use: No Review of Systems Constitutional: No fever, No weakness, No weight loss Respiratory: + shortness of breath, No cough, No dyspnea on exertion, No wheezing Cardiac: + palpitations, No PND, No chest pain, No edema, No orthopnea Abdomen: No GI bleeding, No diarrhea, No nausea, No pain, No vomiting Female : No problem reported Neurologic: No balance problems, No numbness/tingling, No paralysis, No weakness Heme: No abnormal bleeding/bruising, No clotting problems Endo: No fatigue Skin: No problem reported All Other Systems: Reviewed and Negative Allergies Coded Allergies: Moxifloxacin (Verified Allergy, Intermediate, ITCH,RED RASH, 11/13/16) Medications Current Inpatient Medications Medications (Trade) Dose Ordered Sig/Jennifer Route Start Time Stop Time Status Last Admin Dose Admin Sodium Chloride (Nss 1000ml) 1,000 ml @ 100 mls/hr Q10H IV 11/13/16 18:17 12/13/16 18:16 11/14/16 04:17 100 MLS/HR Acetaminophen (Tylenol Tab) 650 mg Q4H PRN PO 11/13/16 18:30 12/13/16 18:29 Ondansetron HCl (Zofran Inj) 4 mg Q6H PRN IV 11/13/16 18:30 12/13/16 18:29 Polyethylene (Miralax Powder Packet) 17 gm DAILY PRN PO 11/13/16 18:30 12/13/16 18:29 Alprazolam (Xanax Tab) 0.125 mg HS PRN PO 11/13/16 18:30 12/13/16 18:29 11/13/16 23:38 0.125 MG Celecoxib (CeleBREX CAP) 200 mg DAILY PO 11/14/16 09:00 12/14/16 08:59 11/14/16 08:19 200 MG Cholecalciferol (Vitamin D Tab) 1,000 inter.unit DAILY PO 11/14/16 09:00 12/14/16 08:59 11/14/16 08:19 1,000 INTER.UNIT Salmeterol Xinafoate/ Fluticasone (Advair Diskus 250/50 Inh) 1 puff BID INH 11/13/16 21:00 12/13/16 20:59 11/14/16 08:19 1 PUFF Lisinopril (Zestril Tab) 5 mg DAILY PO 11/14/16 09:00 12/14/16 08:59 11/14/16 08:19 5 MG Loratadine (Claritin Tab) 10 mg DAILY PO 11/14/16 09:00 12/14/16 08:59 11/14/16 08:20 10 MG Simvastatin (Zocor Tab) 10 mg HS PO 11/13/16 21:00 12/13/16 20:59 11/13/16 21:11 10 MG Metoprolol Tartrate (Lopressor Iv) 5 mg Q15M PRN IV 11/13/16 18:45 12/13/16 18:44 Miscellaneous (Iv Fluids Completed) 1 ea PRN PRN N/A 11/13/16 19:00 11/13/17 18:59 Physical Exam Vital Signs Past 12 Hours Date Time Temp Pulse Resp B/P Pulse Ox O2 Delivery O2 Flow Rate FiO2 11/14/16 08:09 Room Air 11/14/16 07:33 36.5 70 20 174/84 98 11/14/16 04:00 Room Air 11/14/16 03:31 36.4 63 18 145/79 97 11/14/16 00:00 Room Air 11/13/16 23:09 36.5 72 18 163/83 95 Room Air Constitutional: General Apperance: heathly-appearing Level of Distress: NAD Psychiatric: Mental Status: active & alert Head: normocephalic Eyes: EOM: EOMI ENMT: normal ENT inspection, hearing grossly normal Neck: supple, no masses Lungs: Respiratory effort: no dyspnea, good air movement Auscultation: breath sounds normal, no wheezing Cardiovascular: Heart Auscultation: RRR, no murmurs, no rubs, no gallops Peripheral Pulses: Bruits: none appreciated Abdomen: Bowel Sounds: normal Inspection & Palpation: soft, no tenderness, guarding & rebound, no masses Musculoskeletal: normal strength (5/5 throughout) Extremities: no edema Neurologic: Cranial Nerves: grossly intact Sensation: grossly intact Data Laboratory Results: Last 24 Hours Test 11/13/16 15:15 11/13/16 15:35 11/13/16 21:55 11/14/16 06:20 Urine Color YELLOW Urine Appearance CLEAR Urine pH 6.0 Urine Specific Ethel 1.005 Urine Protein NEG Urine Glucose (UA) NEG Urine Ketones NEG Urine Occult Blood NEG Urine Nitrite NEG Urine Bilirubin NEG Urine Urobilinogen NEG Urine Leukocyte Esterase TRACE Urine WBC (Auto) 1-5 /hpf Urine RBC (Auto) 0-4 /hpf Urine Hyaline Casts (Auto) 0 /lpf Urine Epithelial Cells (Auto) 0-5 /lpf Urine Bacteria (Auto) NEG White Blood Count 5.67 K/uL 5.30 K/uL Red Blood Count 4.53 M/uL 4.46 M/uL Hemoglobin 14.1 g/dL 13.9 g/dL Hematocrit 41.6 % 41.3 % Mean Corpuscular Volume 91.8 fL 92.6 fL Mean Corpuscular Hemoglobin 31.1 pg 31.2 pg Mean Corpuscular Hemoglobin Concent 33.9 g/dl 33.7 g/dl Platelet Count 217 K/uL 184 K/uL Mean Platelet Volume 10.5 fL 10.6 fL Neutrophils (%) (Auto) 57.5 % 48.3 % Lymphocytes (%) (Auto) 30.5 % 38.5 % Monocytes (%) (Auto) 8.6 % 9.8 % Eosinophils (%) (Auto) 2.5 % 2.3 % Basophils (%) (Auto) 0.9 % 0.9 % Neutrophils # (Auto) 3.26 K/uL 2.56 K/uL Lymphocytes # (Auto) 1.73 K/uL 2.04 K/uL Monocytes # (Auto) 0.49 K/uL 0.52 K/uL Eosinophils # (Auto) 0.14 K/uL 0.12 K/uL Basophils # (Auto) 0.05 K/uL 0.05 K/uL RDW Standard Deviation 47.7 fL 47.6 fL RDW Coefficient of Variation 14.0 % 14.0 % Immature Granulocyte % (Auto) 0.0 % 0.2 % Immature Granulocyte # (Auto) 0.00 K/uL 0.01 K/uL Prothrombin Time 10.6 SECONDS Prothromb Time International Ratio 1.0 Activated Partial Thromboplast Time 26.3 SECONDS Partial Thromboplastin Ratio 1.0 Sodium Level 142 mmol/L 145 mmol/L Potassium Level 4.2 mmol/L 3.9 mmol/L Chloride Level 108 mmol/L 111 mmol/L Carbon Dioxide Level 29 mmol/L 27 mmol/L Anion Gap 5.0 mmol/L 7.0 mmol/L Blood Urea Nitrogen 18 mg/dl 14 mg/dl Creatinine 0.96 mg/dl 0.72 mg/dl Est Creatinine Clear Calc Drug Dose 43.6 ml/min 57.7 ml/min Estimated GFR () 68.0 96.3 Estimated GFR (Non- 58.7 83.1 BUN/Creatinine Ratio 18.7 19.7 Random Glucose 82 mg/dl 80 mg/dl Calcium Level 8.7 mg/dl 8.7 mg/dl Magnesium Level 2.4 mg/dl Total Bilirubin 0.3 mg/dl Aspartate Amino Transf (AST/SGOT) 19 U/L Alanine Aminotransferase (ALT/SGPT) 30 U/L Alkaline Phosphatase 76 U/L Total Creatine Kinase 155 U/L Creatine Kinase MB 1.8 ng/ml Creatine Kinase MB Ratio 1.2 Troponin I < 0.015 ng/ml < 0.015 ng/ml < 0.015 ng/ml Pro-B-Type Natriuretic Peptide 163 pg/ml Total Protein 7.4 gm/dl Albumin 3.8 gm/dl Globulin 3.6 gm/dl Albumin/Globulin Ratio 1.1 Thyroid Stimulating Hormone (TSH) 1.120 uIu/ml Free Thyroxine 1.03 ng/dl Imaging: A chest x-ray is unremarkable this admission EKG: Sinus rhythm, possible old inferior myocardial infarction with inferior Q waves (which have been present on prior electrocardiograms) A stress echo was done 10/12/2014, the baseline echo showed normal left ventricular size and function with ejection fraction 60% and no wall motion abnormalities. She reached 99% of her per dictated maximal heart rate, had no electrocardiographic changes and no evidence of ischemia. Telemetry reviewed: Sinus rhythm, frequent PVCs, no significant arrhythmia. Assessment & Plan #1. Dyspnea on exertion: She describes recent onset of dyspnea on exertion however her lungs are clear and her chest x-ray is unremarkable, she does not appear to be fluid overloaded and there appears to be no clear explanation for her symptoms. Things like pulmonary embolism are conceivable, although she has no other symptoms to go along with that. It could be an anginal equivalent as well. A stress test was -2 years ago but perhaps she is developed ischemia sensing. We should perform a stress test using pulse oximetry to make sure she does not have desaturation or ischemia on stress testing. #2. Palpitations: She has had palpitations which have been evaluated as an outpatient following her ablation, these have shown only PVCs. In the past the PVCs may have triggered her SVT but she has had no SVT since ablation that we are aware of. We can treat her PVCs if indicated, in the past we have decided not to. I would recommend continuing telemetry monitoring remained sure we do not miss some other more serious arrhythmia. Thank you for allowing me to participate in her care.
[2016-11-14] MEDS ORDERED: METOPROLOL TARTRATE 50 MG TAB PO STA (11:33)
--- NOTE | 2016-11-14 12:16 | Discharge Instructions ---
Discharge Instructions Date of Service Nov 14, 2016. (Frannie Gordillo PA-C) Admission Reason for Admission: Dyspnea On Exertion (Frannie Gordillo PA-C) Discharge Discharge Diagnosis / Problem: Shortness of Breath with Exertion (Frannie Gordillo PA-C) Discharge Goals Goal(s): Decrease discomfort, Improve function, Increase independence (Frannie Gordillo PA-C) Activity Recommendations Activity Limitations: as noted below Lifting Limitations: gradually increase as tolerated Exercise/Sports Limitations: gradually increase as tolerated May Resume Sexual Activity: when tolerated Shower/Bathe: no limitations . (Frannie Gordillo PA-C) Instructions / Follow-Up Instructions / Follow-Up Shortness of Breath with Exertion and Chest Pressure/Palpitations: - You were sent to the hospital due to chest pressure and EKG findings. We performed cardiac enzymes to assess for heart damage due to an acute cardiac issue which have all come back negative. - Chest x-ray was performed upon admission but does not show evidence of a pneumonia or lung issue causing the shortness of breath. - An echocardiogram (ultrasound of your heart) shows that your heart is pumping adequately - You underwent a stress test which was limited due to difficulty with tolerance from shortness of breath. -- However testing is negative for findings of ischemia (inadequate blood flow to the heart) and your oxygenation level remained adequate even with shortness of breath - Therefore findings do not suggest an acute cardiac or lung condition - your symptoms may be related to general deconditioning (exercise intolerance) or related to your chronic asthma. - Continue your home inhalers. Palpitations: - To help with your palpitations you were started on metoprolol. - A prescription will be provided for metoprolol succinate 50 mg to take 1 tablet daily. - This medication will help control her palpitations, your heart rate, and blood pressure. HTN: - You will be continued on lisinopril 5 mg daily as directed by her family doctor. - Recommend taking your blood pressure daily and keeping a journal. -- If you have any concern with your blood pressure you may take your blood pressure prior to taking your medications -- If you have any concerns about the medication or your blood pressure please discuss with your family doctor. -- For instance if your heart rate is below 60 beats per minute or the top number of your blood pressure is below 100 call your family doctor before taking the metoprolol Follow-Up: - Please see your family doctor in 7-10 days (Frannie Gordillo PA-C) Current Hospital Diet Patient's current hospital diet: AHA Diet (Heart Healthy) (Frannie Gordillo PA-C) Discharge Diet Recommended Diet: AHA Diet (Heart Healthy) (Frannie Gordillo PA-C) Pending Studies Studies pending at discharge: no (Frannie Gordillo PA-C) Medical Emergencies . Who to Call and When: Medical Emergencies: If at any time you feel your situation is an emergency, please call 911 immediately. . (Frannie Gordillo PA-C) Non-Emergent Contact Non-Emergency issues call your: Primary Care Provider Call Non-Emergent contact if: you have a fever, your pain is concerning you, you have any medication questions . (Frannie Gordillo PA-C) . "Provider Documentation" section prepared by Frannie Gordillo. (Frannie Gordillo PA-C) Attending Attestation: Pt seen/examined and patient care plan d/w MARIA ANTONIA Gordillo on day of discharge. I agree with her discharge instructions as outlined. Adan Alston MD (Adan Alston MD) VTE Core Measure Inpt VTE Proph given/why not?: Noah Weathers, SCD's (Frannie Gordillo PA-C)
[2016-11-14 13:14] VITALS: BP 145/69; PULSE 82; TEMP 36.9; O2SAT 95
--- NOTE | 2016-11-14 13:20 | EXERCISE STRESS ECHO ---
*NOTICE TO RECEIVING GREEN PARTY AGENCY This information is strictly Confidential and protected under [place] law. [place] law prohibits you from making any further disclosure of this information unless further disclosure is expressly permitted by the written consent of the person to whom it pertains or is authorized by law. A general authorization for the release of medical or other information is not sufficient for this purpose. Hospital accepts no responsibility if the information is made available to any other person, INCLUDING THE PATIENT. Interpretation Summary * Name: CARLOS PAEZ Study Date: 11/14/2016 10:07 AM BP: 154/68 mmHg * Patient Location: [facility]\S\N289\S\2 HR: 72 * : 1945 (M/d/yyyy) Gender: Female Height: 59 in * Age: 71 yrs Ethnicity: [place] Weight: 146 lb * Ordering Physician: Geovanni Watkins * Referring Physician: DULCE * Performed By: Gertrude Wiggins RDCS * * Reason For Study: AMBROSE * BSA: 1.6 m2 * History: PALPITATIONS, AMBROSE * -- Conclusions -- * 1. Negative exercise stress echocardiogram for ischemia at 99% MPHR * 2. Negative stress ECG for ischemia. * 3. Below average functional capacity. Exercised 3:06 min, achieved 4.7 METS. * 4. Normal resting LV size and function. See full echo report from 11/14/2016 for details. Procedure Details * ECHOEX, CPT #93887 Stress Parameters * Normal baseline electrocardiogram. * Stress ECG: No ST changes. No arrhythmias. * Rest heart rate was '72' BPM. * Rest blood pressure was '154/68' * Maximum heart rate achieved was 146 bpm. * Maximum heart rate was 99 % of maximum age-predicted heart rate. * Maximum blood pressure was '213/104' * Total exercise time was '3:06' * Maximum exercise MET level achieved was '4.70' METS * Maximum treadmill speed was '2.50' miles per hour. * Maximum treadmill elevation was '12.00'% grade. * Exercise was terminated due to 'ACHIEVING TARGET HR'
[2016-11-14] MEDS ORDERED: TPRSR50 PO (14:29)
[2016-11-14 14:35] VITALS: BP 148/74; O2SAT 95
[2016-11-14 15:05] VITALS: BP 148/74; PULSE 82; TEMP 36.9; O2SAT 95
--- NOTE | 2016-11-14 15:54 | Discharge Summary ---
Discharge Summary Date of Service Nov 14, 2016. (Frannie Gordillo PA-C) Discharge Summary Admission Date: Nov 13, 2016 at 18:24 Discharge Date: Nov 14, 2016 Discharge Disposition: Home Principal Diagnosis: Non-Cardiac Chest Pain Problems/Secondary Diagnoses: Medical Problems: (1) Asthma (2) Bronchitis (3) Hypertension (4) Palpitations (5) SVT (supraventricular tachycardia) (1) Palpitations Status: Chronic Immunizations: Have You Had Influenza Vaccine: Yes History of Tetanus Vaccine?: No History of Pneumococcal: No History of Hepatitis B Vaccine: No Procedures: 1. Stress Test -- Conclusions -- * 1. Negative exercise stress echocardiogram for ischemia at 99% MPHR * 2. Negative stress ECG for ischemia. * 3. Below average functional capacity. Exercised 3:06 min, achieved 4.7 METS. * 4. Normal resting LV size and function. See full echo report from 2016 for details. 2. Echocardiogram * The left ventricle is normal in size. * There is borderline concentric left ventricular hypertrophy. * Ejection Fraction = 60-65%. * Left ventricular systolic function is normal. * A full diastolic examination was done with clinical findings of Class I diastolic dysfunction. * The left ventricular wall motion is normal. 3. SINGLE VIEW CHEST CLINICAL HISTORY: Dyspnea. FINDINGS: An AP, portable, upright chest radiograph is compared to study dated 09/11/2014 and correlated with chest CT dated 11/01/2012. The examination is degraded by portable technique and patient rotation. The cardiomediastinal silhouette is unremarkable. Chronic interstitial thickening is unchanged. The lungs and pleural spaces are clear. No pneumothorax is seen. The skeletal structures are osteopenic. The bony thorax is grossly intact. IMPRESSION: No active disease in the chest. Consultations: 1. Cardiology (Frannie Gordillo PA-C) Medication Reconciliation New Medications: Metoprolol Succinate (Metoprolol Succinate ER) 50 Mg Tabcr 50 MG PO DAILY for 30 Days Continued Medications: Alprazolam (Alprazolam) 0.25 Mg Tab 0.125 MG PO HS PRN for Anxiety/Insomnia Carboxymethylcellulose Sodium (Refresh Tears) 0.5 % Wil 2-3 DROPS OPB DAILY PRN for PRN Celecoxib (Celebrex) 200 Mg Cap 200 MG PO DAILY Cholecalciferol (Vitamin D3) 1,000 Unit Tab 1 TAB PO DAILY, TAB 3 Refills Fluticasone Prop/Salmeterol (Advair Diskus 250/50 60 Dose) 1 Ea Aerp 1 PUFF INH BID, INHALER Lisinopril (Lisinopril) 2.5 Mg Tab 5 MG PO DAILY Loratadine (Claritin) 10 Mg Tab 10 MG PO DAILY, TAB Simvastatin (Simvastatin) 20 Mg Tab 10 MG PO HS [Lemon-Lavendar] () 1 TAB PO DAILY Discharge Exam Review of Systems: Constitutional: No chills, No fever Eyes: No worsening of vision ENT: No nasal symptoms, No sore throat, No trouble swallowing Respiratory: + dyspnea on exertion, No cough, No shortness of breath Cardiovascular: + palpitations, No chest pain Abdomen: No constipation, No diarrhea, No nausea, No pain, No vomiting Musculoskeletal: No calf pain, No swelling Genitourinary - Female: No dysuria Neurologic: No vertigo Integumentary: No rash Physical Exam: General Appearance: WD/WN, no apparent distress Eyes: sclerae normal ENT: hearing grossly normal Neck: supple, no JVD, trachea midline Respiratory/Chest: lungs clear, normal breath sounds, no respiratory distress, no accessory muscle use Cardiovascular: regular rate, rhythm, no gallop, no murmur Abdomen / GI: normal bowel sounds, non tender, soft Extremities: no calf tenderness, no pedal edema Neurologic/Psychiatric: alert, oriented x 3 Skin: normal color, warm/dry (Frannie Gordillo, [facility]) Hospital Course ADMISSION: This is a 71 yo F with PMHx of SVT s/p ablation therapy, HTN, bronchitis, asthma, who presents from her PCP's office at a routine appointment with complaints of shortness of breath and EKG with possible inferior infarct which was concerning for CT. The patient is accompanied by her . The patient admit to worsening shortness of breath which started approximately 2-3 days ago. She notes that it has become increasingly difficult to go up the stairs, and that she becomes more fatigued more quickly than normal. She reports taking lisinopril 2.5 mg. The patient forgot to take this medication for a 4day stretch, and noted to have heart racing on Thursday night; she took her blood pressure and at that time was higher than 170/80, she took lisinopril 2.5 mg at that time, and then restarted taking her normal daily dose on Thursday morning. She has been consistent with taking medication since then. Her blood pressure on Thursday was in the 130s. She admits to feeling a right sided shoulder pain today, worse at rest and with lying flat, and has had this before. The patient has also experienced left shoulder pain which started her in August, which comes and goes, worse at rest and with lying flat. She denies any cardiac symptoms that coincide with that shoulder pain. The patient denies other symptoms such as chest pain, palpitation, flutter, headache, changes in vision, or peripheral swelling. The patient also notes having diarrhea 1 week. She has approximately 4 loose bowel movements per day. Her fluid intake has not changed; normally drinks a glass of water with meals and a few sips with medications. HOSPITAL COURSE: Shortness of Breath/Fatigue: Patient reports that this has been a chronic issues with exertion but recently worsened - Patient does report improvement in shortness of breath however was only able to participate for a short period of time during her stress test due to AMBROSE - Serial cardiac enzymes were obtained and remained negative and heart rhythm was monitored with no abnormal arrhythmias - CXR without acute cardiopulmonary findings - please see procedures for official report - EKG with normal sinus rhythm with findings of a possible inferior infarct and Q waves however EKG similar to previous readings - Resting echocardiogram obtained that shows a preserved ejection fraction and grade 1 diastolic dysfunction - Patient was seen and evaluated by cardiology Palpitations: - Per guidance of cardiology - she received 1 dose of metoprolol tartrate 50 mg and tolerated well - She was discharged home on metoprolol succinate 50 mg daily for rate control and improvement of palpitations -- Metoprolol may assist with blood pressure control - She was instructed to continue to take her blood pressure daily and to keep a log to present to her family doctor - She expressed concern for hypotension - recommended her to take her blood pressure and pulse prior to metoprolol administration and to call her PCP if pulse is less than 60 bpm or systolic blood pressure less than 100 - reassured patient that metoprolol is generally a weak blood pressure medication and is typically well tolerated Hypertension: - Patient's lisinopril was just recently increased to 5 mg daily and she was discharged at this current dosing - Patient's blood pressure readings are variable Diarrhea: - Patient without any episodes of diarrhea during admission - initially planned to culture the stools and check for C. difficile however suspicion is low given no recent antibiotic use - She was hydrated overnight is concern for some mild dehydration DVT Prophylaxis: Teds, SCDs, out of bed as tolerated CODE STATUS: Full code Disposition: Patient without any further complaints of chest discomfort or intermittent shoulder pain. Even with limited participation in stress testing no ischemic changes were appreciated. She is afebrile with a stable blood pressure and is optimal for discharge home. She was instructed to follow-up with her PCP in 7-10 days. Total Time Spent: Greater than 30 minutes This includes examination of the patient, discharge planning, medication reconciliation, and communication with other providers. (Frannie Gordillo PA-C) Attending Attestation: Pt seen/examined, chart reviewed, and plan of care d/w MARIA ANTONIA Gordillo on day of discharge. I agree with the marmolejo components of her discharge summary as outlined. 71yo female with past h/o palpitations, asthma, and prior SVT s/p ablation procedure who presented with dyspnea as well as palpitations and elevated BP. During her stay telemetry was normal (extra beats seen only), cardiac enzymes were negative, and exercise stress echocardiogram was negative for ischemia. She was started on toprol xl for her chronic palpitations. Beta jesus was tolerated prior to discharge home. All other medical problems remained stable while here. Discharge exam: gen - NAD neck - no JVD heart - RRR, s1, s2, no murmur lungs - CTA b/l abd - soft, NT ext - no edema, pulses 2+ b/l Adan Alston MD (Adan Alston MD) Discharge Instructions Please refer to the electronic Patient Visit Report (Discharge Instructions) for additional information. (Frannie Gordillo PA-C) Additional Copies To RV. Srinivasan MD
== END 2016-11-14 15:26 | disposition home or self-care (01) ==
LOC: ENRESERVTM → ENRESERVDT → C.EDA 15:39 → C.MED 18:24
PROVIDERS: ADMIT Hospitalist; ATTEND Internal Medicine
DX: R06.02 Shortness of breath (principal); R07.89 Other chest pain; I10 Essential (primary) hypertension; J45.909 Unspecified asthma, uncomplicated; R53.83 Other fatigue; Z87.891 Personal history of nicotine dependence

== ENCOUNTER → 2017-01-22 | Outpatient (CLI) | payer OTHER ==
[~2017-01-22] MED LIST changes: -ALBU1AER9 INH; +CARB0.5D28 OPB; +CHOL1000 PO; +CLR10 PO; -DICL1GEL28 TOP; -KETO0.024 OPB; +LSN25 PO; -RANI150C4 PO; +TPRSR50 PO; +[UNRECOGNIZED DRUG - OTHER] PO
[2017-01-22 16:40] LABS: BASO % 0.9 %; BASO ABS # 0.06 K/uL (0-0.2); COMPLETE YES; EOS % 2.9 %; HEMATOCRIT 42.3 % (37-47); IG% 0.2 %; LYMPH % 25.4 %; LYMPH ABS # 1.65 K/uL (1.2-3.4); MEAN CELL VOLUME 93.8 fL (80-100); MEAN CORPUSCULAR HEMOGLOBIN 30.8 pg (25-34); MEAN CORPUSCULAR HGB CONC 32.9 g/dl (32-36); MEAN PLATELET VOLUME 10.3 fL (7.4-10.4); MONO % 7.6 %; PLATELET COUNT 228 K/uL (130-400); RED BLOOD COUNT 4.51 M/uL (4.2-5.4); WHITE BLOOD COUNT 6.49 K/uL (4.8-10.8)
--- NOTE | 2017-01-29 11:03 | CODING QUERY MEDICAL NECESSITY ---
CQSUPPORTING DIAGNOSIS NEEDED A supporting diagnosis is required for the test/procedure performed on this patient in order for us to be reimbursed by the patient's insurance. Please provide a supporting diagnosis for the following test/procedure listed below next to the test name along with your signature. *If there is no additional diagnosis for this patient that would support the following test/procedure please document that below next to the test/procedure. Test(s)/Procedure(s) that require a supporting diagnosis: DOS 01/22/17 VITAMIN D VITAMIN B12 ORDERED BY MARIA ANTONIA KANG Provider Signature: Date: Thank you Isis [facility] Information Management Once completed, please kindly fax back to [phone] For questions please call [phone]
== END | disposition home or self-care (01) ==
LOC: C.LAB1850 15:36
PROVIDERS: ATTEND Internal Medicine
DX: R53.81 Other malaise (principal); E55.9 Vitamin D deficiency, unspecified

== ENCOUNTER → 2017-04-23 | Outpatient (CLI) | payer OTHER ==
--- NOTE | 2017-04-23 13:57 | MAMMOGRAPHY REPORT ---
BILATERAL DIGITAL SCREENING MAMMOGRAM WITH CAD: 04/23/2017 CLINICAL HISTORY: Routine screening. Patient has no complaints. TECHNIQUE: Current study was also evaluated with a Computer Aided Detection (CAD) system. Bilateral CC and MLO views were obtained. COMPARISON: Comparison is made to exams dated: 04/22/2016 mammogram, 04/20/2015 mammogram, 04/18/2014 m ammogram, 03/29/2013 mammogram, 06/24/2012 mammogram, and 06/23/2011 mammogram - [facility]. BREAST COMPOSITION: There are scattered areas of fibroglandular density in both breasts. FINDINGS: No suspicious masses, calcifications, or areas of architectural distortion are noted in ei ther breast. There has been no significant interval change compared to prior exams. IMPRESSION: ACR BI-RADS CATEGORY 1: NEGATIVE There is no mammographic evidence of malignancy. A 1 year screening mammogram is recommended. The pa tient will receive written notification of the results. Approximately 10% of breast cancers are not detected with mammography. A negative mammographic report should not delay biopsy if a clinically suggestive mass is present. Hannah Yuen M.D. /:04/23/2017 12:15:09 Cigar Maker: Homa VELASQUEZ(Yue)(M), [facility] letter sent: Normal 1/2 BI-RADS Code: ACR BI-RADS Category 1: Negative
== END | disposition home or self-care (01) ==
LOC: C.MAMM 11:01
PROVIDERS: ATTEND Internal Medicine
DX: Z12.31 Encounter for screening mammogram for malignant neoplasm of breast (principal)

== ENCOUNTER → 2017-07-10 | Outpatient (CLI) | payer OTHER ==
[2017-07-10 12:31] LABS: BASO ABS # 0.05 K/uL (0-0.2); COMPLETE YES; HEMATOCRIT 41.5 % (37-47); IG% 0.2 %; LYMPH % 31.9 %; MEAN CELL VOLUME 93.7 fL (80-100); MEAN CORPUSCULAR HEMOGLOBIN 31.4 pg (25-34); MEAN CORPUSCULAR HGB CONC 33.5 g/dl (32-36); MEAN PLATELET VOLUME 10.8 fL (7.4-10.4); NEUT % 53.9 %; PLATELET COUNT 201 K/uL (130-400); RED BLOOD COUNT 4.43 M/uL (4.2-5.4); WHITE BLOOD COUNT 5.02 K/uL (4.8-10.8)
[2017-07-10 12:46] LABS: ALT/SGPT 25 U/L (12-78); AST/SGOT 16 U/L (15-37); BLOOD UREA NITROGEN 17 mg/dl (7-18); BUN/CREATININE RATIO 18.4 (10-20); CALCIUM 8.6 mg/dl (8.5-10.1); CARBON DIOXIDE 27 mmol/L (21-32); CHLORIDE 109 mmol/L (98-107); CREATININE 0.93 mg/dl (0.60-1.20); GLUCOSE 89 mg/dl (70-99); POTASSIUM 4.5 mmol/L (3.5-5.1); SODIUM 142 mmol/L (136-145)
[2017-07-10 12:50] LABS: ALKALINE PHOSPHATASE 69 U/L (45-117); CHOLESTEROL 205 mg/dl (0-200); CHOLESTEROL/HDL RATIO 2.7; HDL CHOLESTEROL 76 mg/dl; LDL CHOLESTEROL CALCULATED 114 mg/dl; TRIGLYCERIDES 73 mg/dl (0-150); VERY LOW DENSITY LIPOPROT CALC 15 mg/dl
== END | disposition home or self-care (01) ==
LOC: C.LABBFT 08:37
PROVIDERS: ATTEND Internal Medicine
DX: E78.5 Hyperlipidemia, unspecified (principal); I10 Essential (primary) hypertension

== ENCOUNTER 2017-11-11 21:00 | Emergency (ER) | payer OTHER ==
[~2017-11-11] VITALS: Ht 124.5 cm; Wt 71.4 kg
[2017-11-11 21:03] VITALS: Ht 124.5 cm; Wt 71.4 kg
[2017-11-11 21:15] VITALS: O2SAT 96
[2017-11-11 22:52] LABS: BASO % 0.6 %; BASO ABS # 0.04 K/uL (0-0.2); EOS % 3.7 %; EOS ABS # 0.23 K/uL (0-0.5); HEMATOCRIT 42.1 % (37-47); HEMOGLOBIN 13.9 g/dL (12.0-16.0); IG# 0.01 K/uL (0.00-0.02); LYMPH % 33.7 %; LYMPH ABS # 2.11 K/uL (1.2-3.4); MEAN CELL VOLUME 93.3 fL (80-100); MEAN CORPUSCULAR HEMOGLOBIN 30.8 pg (25-34); MEAN PLATELET VOLUME 10.6 fL (7.4-10.4); MONO % 9.6 %; NEUT % 52.2 %; NEUT ABS # 3.27 K/uL (1.4-6.5); PLATELET COUNT 213 K/uL (130-400); RED CELL DISTRIBUTION WIDTH CV 13.7 % (11.5-14.5); RED CELL DISTRIBUTION WIDTH SD 46.8 fL (36.4-46.3); WHITE BLOOD COUNT 6.26 K/uL (4.8-10.8)
[2017-11-11 22:59] LABS: ALBUMIN 3.6 gm/dl (3.4-5.0); ALT/SGPT 33 U/L (12-78); BLOOD UREA NITROGEN 13 mg/dl (7-18); CALCIUM 8.9 mg/dl (8.5-10.1); CARBON DIOXIDE 28 mmol/L (21-32); CREATININE 0.88 mg/dl (0.60-1.20); GLUCOSE 87 mg/dl (70-99); LIPASE 247 U/L (73-393); POTASSIUM 3.5 mmol/L (3.5-5.1); SODIUM 141 mmol/L (136-145)
[2017-11-11 23:02] LABS: ALKALINE PHOSPHATASE 80 U/L (45-117); AST/SGOT 25 U/L (15-37); TOTAL PROTEIN 7.2 gm/dl (6.4-8.2)
--- NOTE | 2017-11-11 23:02 | DIAGNOSTIC IMAGING REPORT ---
SINGLE VIEW CHEST CLINICAL HISTORY: Atypical chest pain. FINDINGS: An AP, portable, upright chest radiograph is compared to study dated 11/13/2016 and correlated with chest CT dated 11/01/2012. The examination is degraded by portable technique and apical lordotic positioning. The heart is top normal for projection. The mid stomach contour is within normal limits. Chronic interstitial thickening is unchanged. The lungs and pleural spaces are clear noting minimal dependent atelectasis. No pneumothorax is seen. The skeletal structures are osteopenic. The bony thorax is grossly intact. IMPRESSION: No acute cardiopulmonary abnormality and no significant change from 11/13/2016. Electronically signed by: Alex Aragon M.D. 11/11/2017 11:01 PM Dictated Date/Time: 11/11/2017 11:00 PM
[2017-11-11 23:40] VITALS: BP 173/86; PULSE 60; TEMP 36.9; O2SAT 96
--- NOTE | 2017-11-11 23:42 | EMERGENCY ROOM VISIT NOTE ---
History Report prepared by Yony: Elisha Price Under the Supervision of: Dr. Nikhil Villarreal M.D. First contact with patient: 22:18 Chief Complaint: HYPERTENSION Stated Complaint: HIGH BP History of Present Illness The patient is a 72 year old female who presents to the Emergency Room with complaints of worsening high blood pressure starting earlier today. The patient has measured her blood pressure 3 times since 1700. Her blood pressure got as high as 196/104. She has had brief headaches. She has had some lightheadedness today. The patient is on lisinopril and metoprolol. She took a double dose of metoprolol at 2030 today. She denies any vision changes, chest pain, abdominal pain, nausea, vomiting, urinary symptoms, numbness, weakness, difficulty swallowing, difficulty speaking, leg pain, or leg swelling. Source of History: patient Onset: earlier today Position: other (constitutional) Symptom Intensity: 196/104 Quality: other (high blood pressure) Timing: worsening Associated Symptoms: + headache, No chest pain, No nausea, No vomiting, No abdominal pain, No urinary symptoms, No weakness, No numbness Note: Pt reports lightheadedness. Review of Systems See HPI for pertinent positives & negatives. A total of 10 systems reviewed and were otherwise negative. Past Medical & Surgical Medical Problems: (1) Asthma (2) Bronchitis (3) Hypertension (4) Palpitations (5) SVT (supraventricular tachycardia) Old medical records were reviewed. Nurse's notes were reviewed and I agree with. Family History FHx: cancer Hypertension Social History Smoking Status: Never Smoker Drug Use: none Marital Status: Housing Status: lives with significant other Occupation Status: retired Current/Historical Medications Scheduled Celecoxib (Celebrex), 200 MG PO DAILY Cholecalciferol (Vitamin D3), 1 TAB PO DAILY Fluticasone Prop/Salmeterol (Advair Diskus 250/50 60 Dose), 1 PUFF INH BID Lisinopril (Lisinopril), 5 MG PO DAILY Loratadine (Claritin), 10 MG PO DAILY Metoprolol Succinate (Metoprolol Succinate ER), 50 MG PO DAILY Simvastatin (Simvastatin), 10 MG PO HS [Lemon-Lavendar], 1 TAB PO DAILY Scheduled PRN Alprazolam (Alprazolam), 0.125 MG PO HS PRN for Anxiety/Insomnia Carboxymethylcellulose Sodium (Refresh Tears), 2-3 DROPS OPB DAILY PRN for PRN Allergies Coded Allergies: Moxifloxacin (Verified Allergy, Intermediate, ITCH,RED RASH, 11/13/16) Physical Exam Vital Signs Date Time Temp Pulse Resp B/P (MAP) Pulse Ox O2 Delivery O2 Flow Rate FiO2 11/11/17 23:40 36.9 60 22 173/86 96 11/11/17 23:05 57 22 154/76 97 Room Air 11/11/17 22:08 64 22 203/107 96 Room Air 11/11/17 21:30 69 22 210/84 95 Room Air 11/11/17 21:18 69 11/11/17 21:15 96 Room Air 11/11/17 21:15 68 16 210/84 96 Room Air 11/11/17 21:03 36.9 73 18 243/111 98 Room Air Physical Exam General: Non-ill appearing older female in no acute distress. HEENT: Normal cephalic atraumatic. Pupils are equal round and reactive to light. Extraocular movements are intact. Oropharynx is pink with moist mucous membranes. No swelling of the mouth lips or tongue. Neck: Supple with a midline trachea. No meningeal signs or stiffness, no JVD or bruits. No Stridor. Chest: Clear to auscultation bilaterally. No wheezes or rhonchi. No increased work of breathing. Heart: regular rate and rhythm. Abdomen: Soft nontender, nondistended without rebound guarding or rigidity. Extremities: No cyanosis clubbing or edema. No calf tenderness or assymetry Spine/Back. Non tender to palpation. No CVA tenderness Skin: Good turgor without rashes. Neurologic exam: Cranial nerves two through 12 are intact. Motor and sensation are intact and symmetrical throughout. Medical Decision & Procedures ER Provider Diagnostic Interpretation: X-ray results as stated below per interpretation by me and the radiologist: SINGLE VIEW CHEST CLINICAL HISTORY: Atypical chest pain. FINDINGS: An AP, portable, upright chest radiograph is compared to study dated 11/13/2016 and correlated with chest CT dated 11/01/2012. The examination is degraded by portable technique and apical lordotic positioning. The heart is top normal for projection. The mid stomach contour is within normal limits. Chronic interstitial thickening is unchanged. The lungs and pleural spaces are clear noting minimal dependent atelectasis. No pneumothorax is seen. The skeletal structures are osteopenic. The bony thorax is grossly intact. IMPRESSION: No acute cardiopulmonary abnormality and no significant change from 11/13/2016. Electronically signed by: Alex Aragon M.D. 11/11/2017 11:01 PM Dictated Date/Time: 11/11/2017 11:00 PM Laboratory Results 11/11/17 21:20 Red Blood Count 4.51, Mean Corpuscular Volume 93.3, Mean Corpuscular Hemoglobin 30.8, Mean Corpuscular Hemoglobin Concent 33.0, Mean Platelet Volume 10.6, Neutrophils (%) (Auto) 52.2, Lymphocytes (%) (Auto) 33.7, Monocytes (%) (Auto) 9.6, Eosinophils (%) (Auto) 3.7, Basophils (%) (Auto) 0.6, Neutrophils # (Auto) 3.27, Lymphocytes # (Auto) 2.11, Monocytes # (Auto) 0.60, Eosinophils # (Auto) 0.23, Basophils # (Auto) 0.04 11/11/17 21:20 Test 11/11/17 21:20 11/11/17 22:35 White Blood Count 6.26 K/uL (4.8-10.8) Red Blood Count 4.51 M/uL (4.2-5.4) Hemoglobin 13.9 g/dL (12.0-16.0) Hematocrit 42.1 % (37-47) Mean Corpuscular Volume 93.3 fL (80-100) Mean Corpuscular Hemoglobin 30.8 pg (25-34) Mean Corpuscular Hemoglobin Concent 33.0 g/dl (32-36) Platelet Count 213 K/uL (130-400) Mean Platelet Volume 10.6 fL (7.4-10.4) Neutrophils (%) (Auto) 52.2 % Lymphocytes (%) (Auto) 33.7 % Monocytes (%) (Auto) 9.6 % Eosinophils (%) (Auto) 3.7 % Basophils (%) (Auto) 0.6 % Neutrophils # (Auto) 3.27 K/uL (1.4-6.5) Lymphocytes # (Auto) 2.11 K/uL (1.2-3.4) Monocytes # (Auto) 0.60 K/uL (0.11-0.59) Eosinophils # (Auto) 0.23 K/uL (0-0.5) Basophils # (Auto) 0.04 K/uL (0-0.2) RDW Standard Deviation 46.8 fL (36.4-46.3) RDW Coefficient of Variation 13.7 % (11.5-14.5) Immature Granulocyte % (Auto) 0.2 % Immature Granulocyte # (Auto) 0.01 K/uL (0.00-0.02) Anion Gap 7.0 mmol/L (3-11) Est Creatinine Clear Calc Drug Dose 36.0 ml/min Estimated GFR () 75.0 Estimated GFR (Non- 64.7 BUN/Creatinine Ratio 15.2 (10-20) Calcium Level 8.9 mg/dl (8.5-10.1) Total Bilirubin 0.4 mg/dl (0.2-1) Direct Bilirubin < 0.1 mg/dl (0-0.2) Aspartate Amino Transf (AST/SGOT) 25 U/L (15-37) Alanine Aminotransferase (ALT/SGPT) 33 U/L (12-78) Alkaline Phosphatase 80 U/L (45-117) Total Protein 7.2 gm/dl (6.4-8.2) Albumin 3.6 gm/dl (3.4-5.0) Lipase 247 U/L (73-393) Bedside Troponin I < 0.030 ng/ml (0-0.045) Laboratory studies as stated above per my review. ECG Per My Interpretation Indication: other (high blood pressure) Rate (beats per minute): 67 Rhythm: normal sinus Findings: no acute ischemic change, no ectopy Comparison ECG Date: 13-Nov-2016 Change: no significant change ED Course 2223: Past medical records reviewed. The patient was evaluated in room C1B, and a complete history and physical examination were performed. 2327: Upon reevaluation, the patient is resting comfortably. I discussed the results and treatment plan with her. She verbalized agreement of the treatment plan. The patient was discharged home. Medical Decision Differentials include, but are not limited to; hypertension, hypertensive emergency, CVA, cardiac disease, electrolyte or metabolic abnormality. This patient comes in as described above. She was placed in room C1. She is here for treatment and evaluation of hypertension. She did take metoprolol an extra 25 mg. This was about 2 hours prior to arrival. I asked established and blood work was obtained she has no other significant symptoms at present. She has no neurologic symptoms. She has nothing to suggest any evidence of endorgan damage as. her EKG was unremarkable and does not suggest acute coronary syndrome or arrhythmia. She benitez no acute electrolyte or metabolic ab normalities. Without any further treatment her blood pressure came down significantly to 150s systolic. She will be discharged home. I told her to monitor blood pressure and follow up with her regular doctor. She should return if any new problems or concerns. She is happy to plan and discharged home.. Medication Reconcilliation Current Medication List: was personally reviewed by me Blood Pressure Screening Patient's blood pressure: Elevated blood pressure Blood pressure disposition: Referred to PCP Impression Primary Impression: Hypertension Scribe Attestation The scribe's documentation has been prepared under my direction and personally reviewed by me in its entirety. I confirm that the note above accurately reflects all work, treatment, procedures, and medical decision making performed by me. Departure Information Dispostion Home / Self-Care Referrals RV. Srinivasan MD (PCP) Forms HOME CARE DOCUMENTATION FORM, IMPORTANT VISIT INFORMATION, WORK / SCHOOL INSTRUCTIONS Patient Instructions My [facility] Additional Instructions Rest. Drink plenty of fluids. Check and log your blood pressure frequently Return if: Further problems with your blood pressure, chest pain, shortness of breath, worsening of symptoms, fever or chills, any new problems or concerns
== END 2017-11-11 23:41 | disposition home or self-care (01) ==
LOC: C.EDB 21:01 → C.EDC 23:41
DX: I10 Essential (primary) hypertension (principal); J45.909 Unspecified asthma, uncomplicated; Z82.49 Family history of ischemic heart disease and other diseases of the circulatory system; Z79.899 Other long term (current) drug therapy

== ENCOUNTER → 2017-11-21 | Outpatient (CLI) | payer OTHER ==
[2017-11-21 11:15] LABS: BLOOD UREA NITROGEN 14 mg/dl (7-18); CALCIUM 8.8 mg/dl (8.5-10.1); CARBON DIOXIDE 25 mmol/L (21-32); CREATININE 0.94 mg/dl (0.60-1.20); GLUCOSE 88 mg/dl (70-99); POTASSIUM 4.5 mmol/L (3.5-5.1); SODIUM 141 mmol/L (136-145)
[2017-11-21 11:19] LABS: CHOLESTEROL 198 mg/dl (0-200); LDL CHOLESTEROL CALCULATED 113 mg/dl
== END | disposition home or self-care (01) ==
LOC: C.LAB1850 09:19
PROVIDERS: ATTEND Internal Medicine
DX: E78.5 Hyperlipidemia, unspecified (principal); E55.9 Vitamin D deficiency, unspecified; I10 Essential (primary) hypertension

== ENCOUNTER → 2017-11-23 | Outpatient (CLI) | payer OTHER ==
--- NOTE | 2017-11-23 09:30 | DIAGNOSTIC IMAGING REPORT ---
ULTRASOUND OF THE ABDOMINAL AORTA CLINICAL HISTORY: Hypertension. Family history of aortic aneurysm. COMPARISON STUDY: No priors. TECHNIQUE: Multiple carter scale, color Doppler, and spectral Doppler sonograms of the abdominal aorta and iliac arteries are performed. Images are reviewed in the transverse and longitudinal planes. FINDINGS: There is mild atherosclerotic calcification and irregularity noted throughout the abdominal aorta. The proximal abdominal aorta measures 2.4 x 2.5 cm (AP times transverse), the mid abdominal aorta measures 1.6 x 1.8 cm, and the distal abdominal aorta measures 1.4 x 1.4 cm. The right common iliac artery measures up to 1.0 cm and the left common iliac artery measures up to 0.9 cm. Normal flow is seen within the aorta and pelvic arteries. IMPRESSION: There is no sonographic evidence of abdominal aortic aneurysm. Electronically signed by: Alex Aragon M.D. 11/23/2017 9:29 AM Dictated Date/Time: 11/23/2017 9:28 AM
== END | disposition home or self-care (01) ==
LOC: C.ULTRBC 08:41
PROVIDERS: ATTEND Internal Medicine
DX: I10 Essential (primary) hypertension (principal); Z82.49 Family history of ischemic heart disease and other diseases of the circulatory system

== ENCOUNTER → 2018-04-26 | Outpatient (CLI) | payer OTHER ==
[~2018-04-26] MED LIST changes: +ALPR0.254 PO; -XNX25 PO
--- NOTE | 2018-04-26 13:55 | MAMMOGRAPHY REPORT ---
BILATERAL DIGITAL SCREENING MAMMOGRAM TOMOSYNTHESIS WITH CAD: 04/26/2018 CLINICAL HISTORY: Routine screening. Patient has no complaints. TECHNIQUE: Breast tomosynthesis in addition to standard 2D mammography was performed. Current study w as also evaluated with a Computer Aided Detection (CAD) system. COMPARISON: Comparison is made to exams dated: 04/23/2017 mammogram, 04/22/2016 mammogram, 04/20/2015 m ammogram, 04/18/2014 mammogram, 03/29/2013 ultrasound, and 06/24/2012 mammogram - [facility]. BREAST COMPOSITION: There are scattered areas of fibroglandular density in both breasts. FINDINGS: No suspicious masses, calcifications, or areas of architectural distortion are noted in either breast . There has been no significant interval change compared to prior exams. IMPRESSION: ACR BI-RADS CATEGORY 1: NEGATIVE There is no mammographic evidence of malignancy. A 1 year screening mammogram is recommended.( 019) The patient will receive written notification of the results. Some breast cancers are not detected with mammography. A negative mammographic report should not gloria y biopsy if a clinically suggestive mass is present. Hannah Yuen M.D. ah/:04/26/2018 12:33:04 Juice Weigher: Nanette Martinez, [facility] letter sent: Normal 1/2 BI-RADS Code: ACR BI-RADS Category 1: Negative
== END | disposition home or self-care (01) ==
LOC: C.MAMM 11:16
PROVIDERS: ATTEND Internal Medicine
DX: Z12.31 Encounter for screening mammogram for malignant neoplasm of breast (principal)

== ENCOUNTER 2024-03-17 22:04 | Observation (INO) ==
--- NOTE | 2024-03-17 22:31 | Emergency Department Note ---
History of Present Illness General Chief complaint: Shortness of Breath/Dyspnea Stated complaint: RT SHOULDER/JAW PAIN, TONGUE SHETTY, SOB Time Seen by Provider: 03/17/24 22:14 History of Present Illness Maximum Pain Intensity: 6 This 78-year-old female presents the ER complaining of right shoulder pain tongue burning for the past month and feeling slightly short of breath. Patient states the tongue issues been ongoing. Her doctor told her she was vitamin B deficient and was given a shot last month. Patient denies chest pain, fever, chills, cough, congestion, flulike illness. Patient and family were concerned about her blood pressure and symptoms and came in. Home Medications Medication Instructions Recorded Confirmed Type sodium chloride 0.65 % nasal spray 1 spray intranasal BID PRN 08/27/20 03/18/24 History aerosol (Saline Nasal) Congestion alprazolam 0.5 mg tablet 0.25 mg (1/2 x 0.5 mg) PO HS PRN 02/05/22 03/18/24 Rx sleep 60 days #30 tabs fluticasone 250 mcg-salmeterol 50 1 inh inhalation Q12H PRN SOB #60 01/07/23 03/18/24 Rx mcg/dose blistr powdr for ea inhalation (Advair Diskus) cholecalciferol (vitamin D3) 50 50 mcg PO DAILY #90 caps 02/04/23 03/18/24 Rx mcg (2,000 unit) capsule alendronate 70 mg tablet 70 mg PO WK 02/10/23 03/18/24 History losartan 50 mg tablet 50 mg PO DAILY #90 tabs 11/03/23 03/18/24 Rx pravastatin 10 mg tablet 10 mg PO HS #90 tabs 01/27/24 03/18/24 Rx cyanocobalamin (vitamin B-12) 1,000 mcg IM DIRECTED 03/18/24 03/18/24 History 1,000 mcg/mL injection solution Allergies Allergy/AdvReac Type Severity Reaction Status Date / Time nebivolol Allergy Severe swelling Verified 03/18/24 00:13 of feet moxifloxacin Allergy Intermediate ITCH,RED Verified 03/18/24 00:13 RASH atorvastatin Allergy Mild aches Verified 03/18/24 00:13 eszopiclone [From Lunesta] Allergy Mild Rash Verified 03/18/24 00:13 nitrofurantoin Allergy Mild Rash Verified 03/18/24 00:13 trazodone Allergy Mild didnt like Verified 03/18/24 00:13 the feeling pravastatin AdvReac Intermediate LEG CRAMPS Verified 03/18/24 00:13 simvastatin AdvReac Intermediate Muscle Pain Verified 03/18/24 00:13 animal dander AdvReac Mild Rash Verified 03/18/24 00:13 Past Med/Surg History Problem List (Updated 03/19/24 @ 00:18 by Audra Pruitt PA-C) Acute dyspnea (Acute) Elevated troponin (Acute) Chronic otitis media with serous effusion Medication care plan discussed with patient Osteoporosis ETD (eustachian tube dysfunction) Adjustment disorder Hypertension (Chronic) Allergic rhinitis (Acute) Aortic valve sclerosis Per 2017 TTE. No significant stenosis. No significant valve abnormalities. Generalized osteoarthritis of multiple sites (Chronic) Insomnia (Chronic) Osteoarthritis of hip (Chronic) Osteopenia (Chronic) Paroxysmal supraventricular tachycardia (Chronic) s/p МАРИНА, Dr. Mukherjee Tricuspid regurgitation (Chronic) Vitamin D deficiency (Chronic) Hyperlipidemia (Chronic) Former smoker (Chronic) Asthma (Chronic 11/01/12) Acid reflux (Chronic) Encounter for annual routine gynecological examination Osteoarthritis of right hip FH: colon cancer Health care maintenance Family history of colon cancer Vitamin B12 deficiency Sensorineural hearing loss (SNHL) of both ears Medical History Atypical chest pain Erythema of skin of nose Cerumen impaction Serous otitis media COVID-19 Hemoptysis Hyperglycemia Elevated serum creatinine Edema of both legs Hearing loss Chest pain Pain of right leg Rash Restless leg Hemangioma, nasal Vulvar itching Vulvar lesion Pelvic pain 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 rare res inh use, ~ once/month or less. SVT (supraventricular tachycardia) (09/11/14) Surgical History History of placement of ear tubes left - 08/2022 Status post hysteroscopy aug 2020 History of tooth extraction History of nasal surgery nasal endoscopy with biopsy-05/25/2020-Dr. Florian History of bilateral tubal ligation History of dilatation and curettage x2 History of total hip arthroplasty RIGHT History of esophagogastroduodenoscopy (EGD) History of colonoscopy with polypectomy History of endoscopic sinus surgery History of cataract surgery BILATERAL History of cardiac radiofrequency ablation (~12/07/14) Dr. Mukherjee Family History Mother Colorectal cancer Brother Diabetes Parkinson disease Stroke Sister Diabetes Renal cell cancer Hypertension Father Heart disease Myocardial infarction Hypertension Aunt Brain tumor Tuberculosis Lupus Breast cancer Unknown Thoracic aortic aneurysm (TAA) Deafness Cardiac disorder Stroke Uncle Diabetes Other No family history of adverse response to anesthesia Denies family history of Ovarian cancer Prostate cancer Social History Smoking Status: Never smoker Second Hand Exposure: Yes ( smoked); Do You Dip or Chew Tobacco: No; Hx Alcohol Use: No Hx Substance Use: No Preferred Language: Libyan Communication Ability: Effective Visual Impairment: No Limitations Hearing Ability: Use of Hearing Aid [employer] Programmer Required: No Beliefs That Will Affect Care: None marital status: Current Living Situation: Spouse current occupational status: retired Feels Safe at Home: Yes Childhood Exposure to Second-Hand Smoke: No Dental Care, Regularly: Yes Physical Activity Frequency: Does not Exercise Seatbelt Use: always Sunscreen Use: Yes Assistive Devices: Denture - Upper, Denture - Lower and Glasses Review of Systems A total of 10 systems reviewed and were otherwise negative Physical Exam Vital Signs Vital Signs - 24 hr 03/17/24 22:08 03/17/24 22:23 Pulse Rate 71 76 Respiratory Rate 18 Respiratory Effort / Characteristics Non-Labored Respiratory Depth Normal Blood Pressure 206/77 H Blood Pressure Mean 120 Pulse Oximetry 98 Oxygen Delivery Method Room Air Sepsis Recent Fever Within 48 Hours No Sepsis New/Unexplained Change in Mental Status No Sepsis Action Taken by Nursing No Action Required VITALS: Vitals are noted on the nurse's note and reviewed by myself. Vital signs stable. GENERAL: White female hard of hearing, in no acute distress, nondiaphoretic, well-developed well-nourished. SKIN: Capillary reflex less than 2 seconds. HEENT: Normocephalic. PERRLA. EOMI. Nares patent. Mucous membranes moist. Neck is supple without nuchal rigidity. HEART: Regular rate and rhythm LUNGS: Clear to auscultation bilaterally without wheezes, rales or rhonchi. No retractions or accessory muscle use. ABDOMEN: Positive bowel sounds x 4. Normal tympanic percussion. Soft, nontender, without masses or organomegaly. Valdez sign negative. No guarding or rebound tenderness. no CVA tenderness MUSCULOSKELETAL: No gross musculoskeletal defects. Left calf tenderness. NEURO: Patient was alert and oriented to person place and time. No focal neurological deficits. Course Administered Medications Metoprolol Tartrate (Metoprolol Tartrate 100 Mg Tab) 100 mg PO BID ALHAJI Stop: 04/17/24 20:59 Last Admin: 03/18/24 20:23 Dose: 100 mg Documented By: Discontinued Medications Acetaminophen (Ofirmev) 1,000 mg in 100 mls @ 400 mls/hr IV NOW STA Stop: 03/17/24 22:35 Last Infusion: 03/17/24 23:00 Dose: Infused Documented By: Admin: 03/17/24 22:45 Dose: 400 mls/hr Documented By: MARISOL Ioversol (Optiray 320 125ml) 125 ml IV ONCE ONE Stop: 03/17/24 23:24 Last Admin: 03/17/24 23:23 Dose: 118 ml Documented By: SHANTA Lorazepam (Lorazepam 1 Mg/1 Ml Syr Ed Inj Use) 0.25 mg IV ONE STA Stop: 03/17/24 22:35 Last Admin: 03/17/24 22:45 Dose: 0.25 mg Documented By: MARISOL Medical Decision Making Medical Records Attestation: I reviewed the patient's medical records. Home Medications Current Medication List: was personally reviewed by me Laboratory Data Attestation: I reviewed the patient's lab results. 03/17/24 22:23 03/17/24 22:23 Lab Results 03/17/24 Range/Units 22:23 WBC 7.45 (4.8-10.8) K/ul RBC 4.46 (4.20-5.40) M/uL Hgb 13.1 (12.0-16.0) g/dl Hct 39.8 (37.0-47.0) % MCV 89.2 (80.0-100.0) fL MCH 29.4 (25.0-34.0) pg MCHC 32.9 (32.0-36.0) g/dL RDW Std Deviation 46.9 H (36.4-46.3) fL RDW Coeff of Long 14.4 (11.5-14.5) % Plt Count 239 (130-400) K/uL MPV 10.3 (9.4-12.4) fL Immature Gran % (Auto) 0.3 % Neut % (Auto) 55.2 % Lymph % (Auto) 31.8 % Mccracken % (Auto) 9.1 % Eos % (Auto) 2.8 % Baso % (Auto) 0.8 % Neut # (Auto) 4.11 (1.40-6.50) K/uL Lymph # (Auto) 2.37 (1.20-3.40) K/uL Mccracken # (Auto) 0.68 H (0.11-0.59) K/uL Eos # (Auto) 0.21 (0.00-0.50) K/uL Baso # (Auto) 0.06 (0.00-0.20) K/uL Immature Gran # (Auto) 0.02 (0.01-0.20) K/uL Sodium 140 (136-145) mmol/L Potassium 3.8 (3.5-5.1) mmol/L Chloride 106 (98-107) mmol/L Carbon Dioxide 27 (21-32) mmol/L Anion Gap 7 (3-11) BUN 15 (6-23) mg/dl Creatinine 1.05 (0.6-1.2) mg/dl Est Cr Clr Drug Dosing 37.3 ml/min Est GFR ( Amer) 58.1 ml/min Est GFR (Non-Af Amer) 50.1 ml/min BUN/Creatinine Ratio 14.3 (10-20) Glucose 147 H (70-99(Fasting)) mg/dl Calcium 8.8 (8.6-10.3) mg/dl Magnesium 2.1 (1.7-2.4) mg/dl Total Bilirubin 0.4 (0.2-1.0) mg/dl AST 19 (13-39) U/L ALT 16 (7-52) U/L Alkaline Phosphatase 64 (34-104) U/L Troponin I High Sens 20.7 H (0-14) pg/ml B-Natriuretic Peptide 251 H (0-100) pg/ml Total Protein 7.1 (6.0-8.3) gm/dl Albumin 3.9 (3.4-5.0) gm/dl Globulin 3.2 (2.5-4.0) gm/dl Albumin/Globulin Ratio 1.2 (0.9-2) Lipase 48 (11-82) U/L TSH 2.200 (0.300-4.500) uIu/ml Imaging Data Attestation: I personally reviewed and interpreted this imaging study as follows: Radiologist's Impression: Chest CTA 03/17/24 22:21 Exam(s): CTA CHEST IV Amt: 118 ML OPTIRAY 320 EXAM: CT Angiography Chest With Intravenous Contrast CLINICAL HISTORY: PE. TECHNIQUE: Axial computed tomographic angiography images of the chest with intravenous contrast. MIPS images were created and reviewed. CTDI is 25. 77 mGy and DLP is 681.53 mGy-cm. Automated exposure control was utilized for the study. A dose lowering technique was utilized adhering to the principles of ALARA. MIP reconstructed images were created and reviewed. COMPARISON: CTA chest 04/25/2022 FINDINGS: Pulmonary arteries: There is dilation of the pulmonary arteries. No pulmonary embolus. Aorta: Mild atherosclerosis. No thoracic aortic aneurysm. Lungs: Interseptal thickening could relate to atelectasis and/or pulmonary edema. No mass. Pleural space: Unremarkable. No significant effusion. No pneumothorax. Heart: Coronary artery calcifications are present. No cardiomegaly. No significant pericardial effusion. No evidence of RV dysfunction. Bones/joints: There are degenerative changes of the spine. No acute fracture. Soft tissues: Unremarkable. Lymph nodes: Unremarkable. No enlarged lymph nodes. IMPRESSION: 1. No pulmonary embolus. 2. There is dilation of the pulmonary arteries. This is concerning for pulmonary artery hypertension. 3. Interseptal thickening could relate to atelectasis and/or pulmonary edema. Electronically signed by: Roxana Edmonds MD 03/18/24 01:[address] [facility] Narrative Prior records/ancillary studies reviewed and summarized above. Nursing notes reviewed. Additional history obtained from family. The patient's history was concerning for shoulder pain, tongue numbness and shortness of breath. Differential diagnosis: Etiologies such as metabolic, infection, hypo/hyperglycemia, electrolyte abnormalities, cardiac sources, intracerebral event, toxicologic, neurologic, as well as others were entertained. Physical examination: As above. ER treatment provided: IV Lock An order was placed for continuous cardiac monitoring. The monitor shows a rate of 60-100 with a sinus rhythm per my interpretation. Ativan was ordered On reassessment the patient felt better. Diagnostics interpretation by me: ECG: Ordered for dyspnea EKG: Normal sinus, normal intervals, no acute ST-T wave changes. Impression normal sinus rhythm independently interpreted by myself The labs Independently Interpreted by myself revealed elevated troponin and repeat was ordered Imaging studies: CTA was reviewed and read by radiology Chest x-ray with no acute consolidation, pneumothorax or free air per my independent interpretation HEART SCORE: Hx: high/mod/low suspicion: 0 ECG: ST depression/nonspecific changes/normal: 0 Age: Greater than 65/45-64/less than 45: 2 Risk factors: (Hypertension, hyperlipidemia, diabetes, coronary disease, tobacco use, cocaine use): 1 Troponin: Greater than 2 times normal limits/1-2 times normal limits/normal: 0 Total: 3 Consultation: A consultation was placed with the hospitalist. The case was discussed and diagnostics were reviewed. The patient was evaluated in the ER for further treatment. Exam and history seem consistent with hypertension, shortness of breath and shoulder pain with minimally elevated troponin. Repeat troponin is about the same. Medicine was consulted and case is discussed. She will be evaluated for possible admission. Patient is agreeable.By the evaluation outlined above emergent etiologies such as infection, electrolyte abnormalities, intracerebral event, toxologic, neurologic, abnormalities blood glucose, metabolic, as well as others were deemed relatively unlikely. The pt informed about the findings as listed above. All questions were answered and pleased with the treatment. The chart was completed utilizing [employer] Speech voice recognition software. Grammatical errors, random word insertions, pronoun errors, and incomplete sentences are an occassional consequence of this system due to software limitations, ambient noise, and hardware issues. Any formal questions or concerns about the content, text, or information contained within the body of this dictation should be directly addressed to the physician anesthesiologist assistant for clarification. Impression & Plan Elevated troponin, Acute dyspnea Discharge Plan Visit Data Chief Complaint: Shortness of Breath/Dyspnea Stated Complaint: RT SHOULDER/JAW PAIN, TONGUE SHETTY, SOB ED Provider: Samantha Trejo ED Midlevel Provider: Audra Pruitt Discharge Problem: Elevated troponin, Acute dyspnea Patient Disposition: Admitted As Inpatient Discharge Instructions Interventions: ED Discharge Assessment Last Done: 03/18/24 20:06
[2024-03-17] MEDS: ACETAMINOPHEN 1,000 MG/100 ML VIAL IV STA (22:45)
[2024-03-17] MEDS: LORazepam 1 MG/1 ML SYR ED Inj Use IV STA (22:45)
[2024-03-17 22:51] LABS: Basophils # (auto) 0.06 K/uL (0.00-0.20); Basophils % (auto) 0.8 %; Eosinophils # (auto) 0.21 K/uL (0.00-0.50); Eosinophils % (auto) 2.8 %; Hematocrit (blood only) 39.8 % (37.0-47.0); Hemoglobin 13.1 g/dl (12.0-16.0); Immature Granulocytes # (auto) 0.02 K/uL (0.01-0.20); Immature Granulocytes % (auto) 0.3 %; Lymphocytes # (auto) 2.37 K/uL (1.20-3.40); Lymphocytes % (auto) 31.8 %; Mean Corpuscular Hemoglobin 29.4 pg (25.0-34.0); Mean Corpuscular Hgb Conc 32.9 g/dL (32.0-36.0); Mean Corpuscular Volume 89.2 fL (80.0-100.0); Mean Platelet Volume 10.3 fL (9.4-12.4); Monocytes # (auto) 0.68 K/uL (0.11-0.59); Monocytes % (auto) 9.1 %; Neutrophils # (auto) 4.11 K/uL (1.40-6.50); Neutrophils % (auto) 55.2 %; Platelet Count 239 K/uL (130-400); RDW Coefficient of Variation 14.4 % (11.5-14.5); RDW Standard Deviation 46.9 fL (36.4-46.3); Red Blood Count 4.46 M/uL (4.20-5.40); White Blood Count 7.45 K/ul (4.8-10.8)
[2024-03-17 23:06] LABS: Albumin Globulin Ratio 1.2 (0.9-2); Albumin Level 3.9 gm/dl (3.4-5.0); BUN Creatinine Ratio 14.3 (10-20); Bilirubin,Total 0.4 mg/dl (0.2-1.0); Calcium 8.8 mg/dl (8.6-10.3); Creatinine Clr Calc Pharmacy 37.3 ml/min; Est GFR (African American) 58.1 ml/min; Est GFR (Non-African American) 50.1 ml/min; Globulin 3.2 gm/dl (2.5-4.0); Magnesium 2.1 mg/dl (1.7-2.4); Potassium 3.8 mmol/L (3.5-5.1); Total Protein 7.1 gm/dl (6.0-8.3)
[2024-03-17 23:11] LABS: Troponin I High Sensitivity 20.7 pg/ml (0-14)
--- NOTE | 2024-03-17 23:19 | Emergency Department Note ---
ED Visit Note I was consulted by the Advanced Practice Provider. I personally made/approved the management plan and take responsibility for the patient management. I performed a substantive portion of the visit. This includes the aspects of: -History/Physical -MDM .
[2024-03-17 23:21] LABS: Thyroid Stimulating Hormone 2.2 uIu/ml (0.300-4.500)
[2024-03-17] MEDS: OPTIRAY 320 125ml IV ONE (23:23)
--- NOTE | 2024-03-18 12:00 | CT Scan Report ---
Exam(s): CTA CHEST IV Amt: 118 ML OPTIRAY 320 EXAM: CT Angiography Chest With Intravenous Contrast CLINICAL HISTORY: PE. TECHNIQUE: Axial computed tomographic angiography images of the chest with intravenous contrast. MIPS images were created and reviewed. CTDI is 25. 77 mGy and DLP is 681.53 mGy-cm. Automated exposure control was utilized for the study. A dose lowering technique was utilized adhering to the principles of ALARA. MIP reconstructed images were created and reviewed. COMPARISON: CTA chest 04/25/2022 FINDINGS: Pulmonary arteries: There is dilation of the pulmonary arteries. No pulmonary embolus. Aorta: Mild atherosclerosis. No thoracic aortic aneurysm. Lungs: Interseptal thickening could relate to atelectasis and/or pulmonary edema. No mass. Pleural space: Unremarkable. No significant effusion. No pneumothorax. Heart: Coronary artery calcifications are present. No cardiomegaly. No significant pericardial effusion. No evidence of RV dysfunction. Bones/joints: There are degenerative changes of the spine. No acute fracture. Soft tissues: Unremarkable. Lymph nodes: Unremarkable. No enlarged lymph nodes. IMPRESSION: 1. No pulmonary embolus. 2. There is dilation of the pulmonary arteries. This is concerning for pulmonary artery hypertension. 3. Interseptal thickening could relate to atelectasis and/or pulmonary edema. Electronically signed by: Roxana Edmonds MD 03/18/24 01:35 AM
--- NOTE | 2024-03-18 12:01 | XRay Report ---
XR chest 1V portable CLINICAL HISTORY: Chest pain, nonspecific COMPARISON STUDY: Chest radiograph and chest CT April 25, 2022. FINDINGS: Lung volumes are normal. Lungs are clear. There is no pneumothorax or pleural effusion. Mil d cardiomegaly is unchanged. Mediastinal contours are normal. There is no evidence for pulmonary blane a. IMPRESSION: No acute cardiopulmonary findings. ACT 112: Negative or not required by law. Electronically signed by: Keo Phillips M.D. 03/18/2024 9:34 AM
--- NOTE | 2024-03-18 16:10 | Electrocardiogram Report ---
Test Reason : Blood Pressure : / mmHG Vent. Rate : 076 BPM Atrial Rate : 076 BPM P-R Int : 136 ms QRS Dur : 072 ms QT Int : 392 ms P-R-T Axes : 028 -28 047 degrees QTc Int : 441 ms Normal sinus rhythm Minimal voltage criteria for LVH, may be normal variant ( R in aVL ) Borderline ECG When compared with ECG of 17-JUN-2022 18:47, QRS axis Shifted left Confirmed by Jamar Baldwin ([id number]) on 03/18/2024 4:10:31 PM Referred By: REFERRED SELF Confirmed By:Jamar Baldwin
[2024-03-18] MEDS ORDERED: NITROGLYCERIN SL 0.4 MG/TAB TAB SL PRN (18:01)
[2024-03-18] MEDS ORDERED: ONDANSETRON INJ 2 MG/ML 2 ML VIAL IV PRN (18:05)
[2024-03-18] MEDS ORDERED: ACETAMINOPHEN 325 MG TAB PO PRN (18:05)
[2024-03-18] MEDS: METOPROLOL TARTRATE 100 MG TAB PO SCH (20:23)
--- NOTE | 2024-03-19 08:11 | Hospitalist Progress Note ---
Date of Service March 19, 2024 Assessment & Plan Admission and Anticipated Discharge Date Admission Date: March 18, 2024 Results & Data Results & Data Vital Signs (Past 12 Hours) Vital Signs Temp Pulse Pulse Resp BP Pulse Ox O2 Del Method 03/19/24 07:25 36.9 C 60 16 172/66 H 95 Room Air 03/19/24 06:27 64 03/19/24 03:15 36.8 C 62 18 166/65 H 95 Room Air 03/18/24 23:00 60 03/18/24 22:56 36.5 C 62 18 166/72 H 95 Room Air
[2024-03-19] MEDS ORDERED: PRAVASTATIN SOD 10 MG TAB PO SCH (09:00)
[2024-03-19] MEDS ORDERED: amLODIPine BESYLATE 5 MG TAB PO SCH (09:00)
[2024-03-19] MEDS: LOSARTAN POTASSIUM 50 MG TAB PO SCH (09:04)
[2024-03-19] MEDS: FAMOTIDINE 20 MG TAB PO SCH (09:04)
[2024-03-19] MEDS: ASPIRIN 81 MG ECTAB PO SCH (09:31)
--- NOTE | 2024-03-19 13:13 | Discharge Summary ---
Date of Service March 19, 2024 Admission HPI Per Admitting Provider N/A due to global outage on 03/18/2024. See paper chart for this. Admission Exam Per Admitting Provider N/A due to global outage on 03/18/2024. See paper chart for this. Principal Diagnosis Hypertensive urgency Discharge Exam General:Alert and oriented, no acute distress, HEENT: Normocephalic, moist oral mucosa, Cardio: Regular rate and rhythm, Resp:Lungs clear to auscultation b/l, no wheezes or rhonchi, GI: Soft and nontender, nondistended, bowel sounds active Skin: Warm, pink, dry, Discharge Data Allergies Allergy/AdvReac Type Severity Reaction Status Date / Time nebivolol Allergy Severe swelling Verified 03/18/24 00:13 of feet moxifloxacin Allergy Intermediate ITCH,RED Verified 03/18/24 00:13 RASH atorvastatin Allergy Mild aches Verified 03/18/24 00:13 eszopiclone [From Lunesta] Allergy Mild Rash Verified 03/18/24 00:13 nitrofurantoin Allergy Mild Rash Verified 03/18/24 00:13 trazodone Allergy Mild didnt like Verified 03/18/24 00:13 the feeling pravastatin AdvReac Intermediate LEG CRAMPS Verified 03/18/24 00:13 simvastatin AdvReac Intermediate Muscle Pain Verified 03/18/24 00:13 animal dander AdvReac Mild Rash Verified 03/18/24 00:13 Consultations 03/17/24 23:36 ED Decision to Admit Stat Ordered Studies 03/17/24 22:21 CT angio chest PE protocol Stat Hospital Course (1) Hypertension: (2) Asthma: (3) Acid reflux: (4) Hypertensive urgency: Plan Pt is a 78 yo female with a hx of HTN, osteoporosis, asthma, and GERD who presents to the hospital and was admitted for hypertensive urgency. #HTN urgency - noted to have pressures this admission 200-230/80-90s on admission - pt notes that she is usually good at taking her home meds but sometimes does struggle to recall if she took her meds - current regime: * losartan 50 mg daily * lopressor 100 mg BID - should continue this regime on discharge, - advised pt she is to take her BP at least once daily at home after sitting and resting for 10 minutes and use arm cuff over wrist cuff for better accuracy and should f/u with PCP early next week Thursday, Thursday, or Thursday to ensure pressures stable Total Time Total Time Spent Total Time Spent (In Minutes): <30 Discharge Plan Discharge Items Patient Disposition: Home - Self-Care Reason For Visit: +TROP, HTN, SOB Discharge Diagnosis: Hypertensive urgency Activity: Resume your previous activity Non-emergency contact: Primary Care Provider Call non-emergency contact if: you have any medication questions and your symptoms worsen Follow-up/Referrals: Toya Roberts MD [Primary Care Provider] - Diet: Regular Addtl Attending Provider Instructions: You were admitted to the hospital for high blood pressure readings. Initially, your readings were 200-230s/80-90s, so you were admitted to tighten this control. As we talked about, the goal is not to get perfect blood pressure control of less than 120/80 while here in the hospital, since we do not want to have you have low pressures when you are back at home. Our goal is to have you less than about 180/100 before go home. Your pressures have improved, so we think it is safe for you to go home with the plan to keep track of your blood pressure daily at home and plan to follow-up with your primary care doctor early next week like sometime between Thursday and Thursday. You will be on a new blood pressure regime after leaving the hospital since we will continue what we have had you on here until you see your primary care physician. Your new regime for your blood pressure will be: * Losartan 50 mg once daily (same as you were taking before) * Lopressor/Metoprolol 100 mg twice daily (once in the morning and once at night) We have sent or the Lopressor (aka metoprolol) to your pharmacy. You next dose of Lopressor will be tonight around 8 or 9 pm (whichever time works best for you) and then plan to take it once in the morning and once in the evening thereafter. You should plan to get and use a pill box so that you do not forget to take medications (or forget that you forgot to take them!) and to reduce the chance that you double up on taking any medications. They sell these at any drug store and also at placed like [employer]. Please call your primary care physician on Thursday and let them know you have been in the hospital and need to follow-up with them. Pending Studies at Discharge: No Stand-Alone Forms: My [facility] Medications and DC Order Prescriptions: New metoprolol tartrate 100 mg Tablet 100 mg PO BID 30 Days Qty: 60 1RF Continued alprazolam 0.5 mg tablet 0.25 mg PO HS PRN (Reason: sleep) 60 Days Qty: 30 1RF alendronate 70 mg tablet 70 mg PO WK Rx Instructions: Take on Sun.Rheumatology/[facility] losartan 50 mg tablet 50 mg PO DAILY Qty: 90 3RF pravastatin 10 mg tablet 10 mg PO HS Qty: 90 3RF cholecalciferol (vitamin D3) 50 mcg (2,000 unit) capsule 50 mcg PO DAILY Qty: 90 3RF Rx Instructions: with heaviest meal of the day fluticasone propion-salmeterol [Advair Diskus] 250-50 mcg/dose blister with device 1 inh INHALATION Q12H PRN (Reason: SOB) Qty: 60 3RF Saline Nasal 0.65 % Aerosol,[place] 1 spray INTRANASAL BID PRN (Reason: Congestion) cyanocobalamin (vitamin B-12) 1,000 mcg/mL Solution 1,000 mcg IM DIRECTED Discharge Orders: Discharge Order (Routine); Ordered 03/19/24 Ordered By: Vivien Headley Admission Data Admit Date/Time: 03/18/24 00:00 Attending Provider: Jose Serra Admit Provider: Tenzin Singh Primary Care Provider: Toya Roberts V. Other Providers: Tenzin Singh Other Interventions: Discharge Summary Assessment (RN) Last Done: 03/19/24 15:24 Supervising Physician Co-Signing Physician Notes I personally examined the patient and verified all marmolejo points of history and exam, discussed case, and agree with decision making with Dr Headley feeling better and would like to go home. Extensive discussion with patient and . Vitals noted, in general she is awake and alert pleasant no distress. HEENT normocephalic atraumatic mucous membranes moist. Breathing unlabored no accessory muscle use good effort. Skin shows no rashes no pallor or icterus. Neuro without focal deficits. Markedly elevated blood pressure on admissiongiven how little came of her cardiac workupand given how sensitive high-sensitivity troponin is suggesting that either was simply a false positive or may be an exceedingly minor mild amount of demand ischemia simply from pushing against the afterloadI doubt this was truly a hypertensive urgency, but rather was probably musculoskeletal shoulder and back pain leading to an increase in pain that led to a reflexive spike in blood pressure rather than the blood pressure causing the symptoms. Obviously almost impossible to prove in 1 direction or another, but given how reassuring her workup was, this seems to be far more likely to be the case. Extensive discussion with patient and yet again on long-term management of hypertension and the risks of not only letting someone run uncontrolled (progressive atherosclerosis leading to heart attacks and strokeswhich usually is a fairly slow process) but also that overtreatment can lead to weakness/f alls/fractures etc.and in review of her outpatient blood pressure readings over most of February, it seems like she was almost entirely at a very reasonable goal range. Discussed close outpatient follow-up with PCP. Discussed reactive blood pressure in the hospital. Safe/stable for home. Otherwise as above. Resident Activity Tracking Resident Involvement: Resident Care Provided Care Provided: Adult Hospital Medicine
--- NOTE | 2024-03-19 19:01 | Billing Data ---
Date of Service March 19, 2024 Coding Level of Care Code 54498 IN/OBS DISCH 30 MIN/LESS
--- NOTE | 2024-03-19 19:46 | History & Physical Report ---
Date of Service March 19, 2024 The patient was seen and examined and admitted on March 17, 2024. Documentation was not able to be completed on that date due to unanticipated computer downtime due to global disruption of services. Assessment & Plan (1) Elevated troponin: (2) Acute dyspnea: (3) Hypertension: (4) Aortic valve sclerosis: (5) Adjustment disorder: (6) Paroxysmal supraventricular tachycardia: (7) Hyperlipidemia: (8) Pain in right shoulder: Plan Elevated troponin/volatile blood pressure/hypertension- The patient will be admitted to telemetry for serial cardiac enzymes, serial EKG's, cardiac rhythm monitoring and a 2-D echocardiogram with Dopplers. Troponin 20.7 on admission with follow-up pending Chest x-ray negative CT angiography is negative for PE but brings up the question of pulmonary artery hypertension. 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 twice daily Reassess blood pressure and heart rate in a.m. after monitor overnight Right shoulder pain- Sounds purely mechanical, with her pulling herself up into a truck Needs to adjust mechanics to help event this from happening and causing issues such as rotator cuff injury Asthma- Continue routine inhalers Adjustment disorder/anxiety- Continue alprazolam as needed for sleep Admission and Anticipated Discharge Date Admission Date: March 18, 2024 History of Present Illness Chief Complaint: The patient presents to the emergency department with shortness of breath and dyspnea on exertion, with right shoulder pain extending up toward her right side of neck. She also notes a recent issue with her tongue, which she was told was secondary to B12 deficiency, and began her first B12 shot 1 week ago Primary Care Provider: Toya Roberts MD The patient is a 78-year-old female with a past medical history including hypertension, osteoporosis, adjustment disorder, hypertension, generalized osteoarthritis, paroxysmal supraventricular tachycardia, hyperlipidemia, GERD, B12 deficiency, and SNHL bilaterally. She reports the development of right shoulder pain that radiates into her right neck, which which she thinks is related to pulling himself up into a truck as a passenger. She also complains of abnormal tongue sensation, for which she was told she had a B12 deficiency, and underwent her first B12 injection about 1 week ago. She also describes a recent issue with some shortness of breath and dyspnea on exertion, which she is not sure of the cause, but thinks may be related to deconditioning Allergies Allergy/AdvReac Type Severity Reaction Status Date / Time nebivolol Allergy Severe swelling Verified 03/18/24 00:13 of feet moxifloxacin Allergy Intermediate ITCH,RED Verified 03/18/24 00:13 RASH atorvastatin Allergy Mild aches Verified 03/18/24 00:13 eszopiclone [From Lunesta] Allergy Mild Rash Verified 03/18/24 00:13 nitrofurantoin Allergy Mild Rash Verified 03/18/24 00:13 trazodone Allergy Mild didnt like Verified 03/18/24 00:13 the feeling pravastatin AdvReac Intermediate LEG CRAMPS Verified 03/18/24 00:13 simvastatin AdvReac Intermediate Muscle Pain Verified 03/18/24 00:13 animal dander AdvReac Mild Rash Verified 03/18/24 00:13 Home Medications Medication Instructions Recorded Confirmed Type sodium chloride 0.65 % nasal spray 1 spray intranasal BID PRN 08/27/20 03/18/24 History aerosol (Saline Nasal) Congestion alprazolam 0.5 mg tablet 0.25 mg (1/2 x 0.5 mg) PO HS PRN 02/05/22 03/18/24 Rx sleep 60 days #30 tabs fluticasone 250 mcg-salmeterol 50 1 inh inhalation Q12H PRN SOB #60 01/07/23 03/18/24 Rx mcg/dose blistr powdr for ea inhalation (Advair Diskus) cholecalciferol (vitamin D3) 50 50 mcg PO DAILY #90 caps 02/04/23 03/18/24 Rx mcg (2,000 unit) capsule alendronate 70 mg tablet 70 mg PO WK 02/10/23 03/18/24 History losartan 50 mg tablet 50 mg PO DAILY #90 tabs 11/03/23 03/18/24 Rx pravastatin 10 mg tablet 10 mg PO HS #90 tabs 01/27/24 03/18/24 Rx cyanocobalamin (vitamin B-12) 1,000 mcg IM DIRECTED 03/18/24 03/18/24 History 1,000 mcg/mL injection solution metoprolol tartrate 100 mg tablet 100 mg PO BID 30 days #60 tabs 03/19/24 Rx Past Med/Surg History Problem List (Updated 03/19/24 @ 19:41 by Tenzin Singh MD) Pain in right shoulder Hypertensive urgency Acute dyspnea (Acute) Elevated troponin (Acute) Chronic otitis media with serous effusion Medication care plan discussed with patient Osteoporosis ETD (eustachian tube dysfunction) Adjustment disorder Hypertension (Chronic) Allergic rhinitis (Acute) Aortic valve sclerosis Per 2017 TTE. No significant stenosis. No significant valve abnormalities. Generalized osteoarthritis of multiple sites (Chronic) Insomnia (Chronic) Osteoarthritis of hip (Chronic) Osteopenia (Chronic) Paroxysmal supraventricular tachycardia (Chronic) s/p МАРИНА, Dr. Mukherjee Tricuspid regurgitation (Chronic) Vitamin D deficiency (Chronic) Hyperlipidemia (Chronic) Former smoker (Chronic) Asthma (Chronic 11/01/12) Acid reflux (Chronic) Encounter for annual routine gynecological examination Osteoarthritis of right hip FH: colon cancer Health care maintenance Family history of colon cancer Vitamin B12 deficiency Sensorineural hearing loss (SNHL) of both ears Medical History Atypical chest pain Erythema of skin of nose Cerumen impaction Serous otitis media COVID-19 Hemoptysis Hyperglycemia Elevated serum creatinine Edema of both legs Hearing loss Chest pain Pain of right leg Rash Restless leg Hemangioma, nasal Vulvar itching Vulvar lesion Pelvic pain 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 rare res inh use, ~ once/month or less. SVT (supraventricular tachycardia) (09/11/14) Surgical History History of placement of ear tubes left - 08/2022 Status post hysteroscopy aug 2020 History of tooth extraction History of nasal surgery nasal endoscopy with biopsy-05/25/2020-Dr. Florian History of bilateral tubal ligation History of dilatation and curettage x2 History of total hip arthroplasty RIGHT History of esophagogastroduodenoscopy (EGD) History of colonoscopy with polypectomy History of endoscopic sinus surgery History of cataract surgery BILATERAL History of cardiac radiofrequency ablation (~12/07/14) Dr. Mukherjee Family History Mother Colorectal cancer Brother Diabetes Parkinson disease Stroke Sister Diabetes Renal cell cancer Hypertension Father Heart disease Myocardial infarction Hypertension Aunt Brain tumor Tuberculosis Lupus Breast cancer Unknown Thoracic aortic aneurysm (TAA) Deafness Cardiac disorder Stroke Uncle Diabetes Other No family history of adverse response to anesthesia Denies family history of Ovarian cancer Prostate cancer Social History Smoking Status: Never smoker Second Hand Exposure: Yes ( smoked); Do You Dip or Chew Tobacco: No; Hx Alcohol Use: No Hx Substance Use: No Preferred Language: Moldovan Communication Ability: Effective Visual Impairment: No Limitations Hearing Ability: Use of Hearing Aid Control Systems Engineer Required: No Beliefs That Will Affect Care: None marital status: Current Living Situation: Spouse current occupational status: retired Feels Safe at Home: Yes Childhood Exposure to Second-Hand Smoke: No Dental Care, Regularly: Yes Physical Activity Frequency: Does not Exercise Seatbelt Use: always Sunscreen Use: Yes Assistive Devices: Denture - Upper, Denture - Lower and Glasses Review of Systems 2 Review of Systems: The patient denies chest pain, palpitations, cough, lower extremity swelling, fevers, chills, sweats, nausea, vomiting, diarrhea , constipation, abdominal pain, pelvic pain, blood in urine or stool, dysuria, urinary frequency or urgency, lightheadedness, dizziness, headache, memory loss, loss of consciousness, rash, abnormal bruising or bleeding, imbalance, focal or generalized weakness, numbness or tingling in left arm or bilateral legs, generalized arthralgias or myalgias, back or neck pain, or night sweats. The review of systems is otherwise negative other than for that already noted above, and at least 10 systems have been reviewed. Physical Exam Physical Exam: The patient is awake, alert and oriented 3, well developed and well nourished, normocephalic and atraumatic, lying in bed and in no acute distress. HEENT--PERRL, EOMI, mucous membranes and oropharynx normal Neck--supple. No JVD. No bruits. Thyroid normal, trachea midline, no adenopathy. Heart--normal S1 and S2. No murmurs, rubs or gallops. Lungs--clear bilaterally, no respiratory distress, no accessory muscle use. Abdomen--normal bowel sounds and soft. Nontender. Nondistended, no hernias or masses, no organomegaly. Extremities--no cyanosis or clubbing. No edema. There are good distal pulses b/l. Dermatologic--normal skin turgor, normal color, no abnormal lymph nodes, no rash. Neurologic--cranial nerves II through XII grossly intact. Rheumatologic--normal range of motion. Psychiatric--normal affect. Results & Data Results & Data Vital Signs (Past 12 Hours) Vital Signs Temp Pulse Resp BP Pulse Ox O2 Del Method 03/19/24 15:24 36.3 C L 60 17 176/76 H 94 03/19/24 10:33 36.3 C L 60 17 176/76 H 94 Room Air Laboratory Results Laboratory Results WBC 7.45 K/ul (4.8-10.8) 03/17/24 22: RBC 4.46 M/uL (4.20-5.40) 03/17/24 22: Hgb 13.1 g/dl (12.0-16.0) 03/17/24 22: Hct 39.8 % (37.0-47.0) 03/17/24 22: MCV 89.2 fL (80.0-100.0) 03/17/24 22:23 MCH 29.4 pg (25.0-34.0) 03/17/24 22: MCHC 32.9 g/dL (32.0-36.0) 03/17/24 22: RDW Std Deviation 46.9 fL (36.4-46.3) H 03/17/24 22: RDW Coeff of Long 14.4 % (11.5-14.5) 03/17/24 22: Plt Count 239 K/uL (130-400) 03/17/24 22: MPV 10.3 fL (9.4-12.4) 03/17/24 22:23 Immature Gran % (Auto) 0.3 % 03/17/24: Neut % (Auto) 55.2 % 03/17/24 22: Lymph % (Auto) 31.8 % 03/17/24 22:23 [place] % (Auto) 9.1 % 03/17/24 22:23 Eos % (Auto) 2.8 % 03/17/24 22:23 Baso % (Auto) 0.8 % 03/17/24 22:23 Neut # (Auto) 4.11 K/uL (1.40-6.50) 03/17/24 22:23 Lymph # (Auto) 2.37 K/uL (1.20-3.40) 03/17/24 22:23 [place] # (Auto) 0.68 K/uL (0.11-0.59) H 03/17/24 22:23 Eos # (Auto) 0.21 K/uL (0.00-0.50) 03/17/24 22:23 Baso # (Auto) 0.06 K/uL (0.00-0.20) 03/17/24 22:23 Immature Gran # (Auto) 0.02 K/uL (0.01-0.20) 03/17/24 22:23 Sodium 140 mmol/L (136-145) 03/17/24 22:23 Potassium 3.8 mmol/L (3.5-5.1) 03/17/24 22:23 Chloride 106 mmol/L (98-107) 03/17/24 22:23 Carbon Dioxide 27 mmol/L (21-32) 03/17/24 22:23 Anion Gap 7 (3-11) 03/17/24 22:23 BUN 15 mg/dl (6-23) 03/17/24 22:23 Creatinine 1.05 mg/dl (0.6-1.2) 03/17/24 22:23 Est Cr Clr Drug Dosing 37.3 ml/min 03/17/24 22:23 Est GFR ( Amer) 58.1 ml/min 03/17/24 22:23 Est GFR (Non-Af Amer) 50.1 ml/min 03/17/24 22:23 BUN/Creatinine Ratio 14.3 (10-20) 03/17/24 22:23 Glucose 147 mg/dl (70-99(Fasting)) H 03/17/24 22:23 Calcium 8.8 mg/dl (8.6-10.3) 03/17/24 22:23 Magnesium 2.1 mg/dl (1.7-2.4) 03/17/24 22:23 Total Bilirubin 0.4 mg/dl (0.2-1.0) 03/17/24 22:23 AST 19 U/L (13-39) 03/17/24 22:23 ALT 16 U/L (7-52) 03/17/24 22:23 Alkaline Phosphatase 64 U/L (34-104) 03/17/24 22:23 Troponin I High Sens 17.7 pg/ml (0-14) H D 03/18/24 11:05 B-Natriuretic Peptide 251 pg/ml (0-100) H 03/17/24 22:23 Total Protein 7.1 gm/dl (6.0-8.3) 03/17/24 22:23 Albumin 3.9 gm/dl (3.4-5.0) 03/17/24 22:23 Globulin 3.2 gm/dl (2.5-4.0) 03/17/24 22:23 Albumin/Globulin Ratio 1.2 (0.9-2) 03/17/24 22:23 Lipase 48 U/L (11-82) 03/17/24 22:23 TSH 2.200 uIu/ml (0.300-4.500) 03/17/24 22:23 Impressions Chest X-Ray 03/17/24 22:14 XR chest 1V portable CLINICAL HISTORY: Chest pain, nonspecific COMPARISON STUDY: Chest radiograph and chest CT April 25, 2022. FINDINGS: Lung volumes are normal. Lungs are clear. There is no pneumothorax or pleural effusion. Mild cardiomegaly is unchanged. Mediastinal contours are normal. There is no evidence for pulmonary edema. IMPRESSION: No acute cardiopulmonary findings. ACT 112: Negative or not required by law. Electronically signed by: Keo Phillips M.D. 03/18/2024 9:34 AM Chest CTA 03/17/24 22:21 Exam(s): CTA CHEST IV Amt: 118 ML OPTIRAY 320 EXAM: CT Angiography Chest With Intravenous Contrast CLINICAL HISTORY: PE. TECHNIQUE: Axial computed tomographic angiography images of the chest with intravenous contrast. MIPS images were created and reviewed. CTDI is 25. 77 mGy and DLP is 681.53 mGy-cm. Automated exposure control was utilized for the study. A dose lowering technique was utilized adhering to the principles of ALARA. MIP reconstructed images were created and reviewed. COMPARISON: CTA chest 04/25/2022 FINDINGS: Pulmonary arteries: There is dilation of the pulmonary arteries. No pulmonary embolus. Aorta: Mild atherosclerosis. No thoracic aortic aneurysm. Lungs: Interseptal thickening could relate to atelectasis and/or pulmonary edema. No mass. Pleural space: Unremarkable. No significant effusion. No pneumothorax. Heart: Coronary artery calcifications are present. No cardiomegaly. No significant pericardial effusion. No evidence of RV dysfunction. Bones/joints: There are degenerative changes of the spine. No acute fracture. Soft tissues: Unremarkable. Lymph nodes: Unremarkable. No enlarged lymph nodes. IMPRESSION: 1. No pulmonary embolus. 2. There is dilation of the pulmonary arteries. This is concerning for pulmonary artery hypertension. 3. Interseptal thickening could relate to atelectasis and/or pulmonary edema. Electronically signed by: Roxana Edmonds MD 03/18/24 01:35 AM Code Status & VTE Plan Code Status Full code VTE Prophylaxis Plan VTE Prophylaxis will be ordered: Yes PG Care Time/CCT Total # of Minutes Spent Total Time Spent with Patient: Total time spent is greater than 50% in coordination of care (as documented) at patient's floor/unit and/or counseling patient: Coding Level of Care Code 52206 INT INP/OBS CARE 3/75MIN Diagnoses Elevated troponin R79.89 Acute dyspnea R06.00 Primary hypertension I10 Hypertension type: primary hypertension Aortic valve sclerosis I35.8 Adjustment disorder F43.20 Paroxysmal supraventricular tachycardia I47.1 Hyperlipidemia, unspecified hyperlipidemia type E78.5 Hyperlipidemia type: unspecified Pain in right shoulder M25.511 (3) Hypertension Hypertension type: primary hypertension Qualified Code(s): I10 - Essential (primary) hypertension (7) Hyperlipidemia Hyperlipidemia type: unspecified Qualified Code(s): E78.5 - Hyperlipidemia, unspecified
== END 2024-03-19 15:48 | disposition home or self-care (01) | DRG 305 ==
LOC: ED 22:04 → INTOOBSV 03-18 → 4W 03-18 → SUATTDRO 03-18 → 4W 03-18 20:06